=== PATIENT | female | born 1980 | race American Indian/Alaskan Native ===

== ENCOUNTER 2019-02-02 15:11 | Inpatient (IN) | payer BC ==
--- NOTE | 2019-02-02 15:18 | Event Note ---
ED Screening Note Date of service: 02/02/19 Time: 15:16 ED Screening Note: 38 y o female with PMH of HTN and DM presents with right sided weakness and numbness that began with a headache 2 hours ago This initial assessment/diagnostic orders/clinical plan/treatment(s) is/are subject to change based on patients health status, clinical progression and re- assessment by fellow clinical providers in the ED. Further treatment and workup at subsequent clinical providers discretion. Patient/guardian urged not to elope from the ED as their condition may be serious if not clinically assessed and managed. Initial orders include: protocol charge nurse notified MAin side eval
[2019-02-02 15:34] LABS: Basophils # (Auto) 0.1 K/mm3 (0.0-0.1); Eosinophils # (Auto) 0.3 K/mm3 (0.0-0.4); Eosinophils % (Auto) 2.8 % (0.0-4.3); Hematocrit 38.6 % (30.3-42.9); Hemoglobin 12.7 gm/dl (10.1-14.3); Lymphocytes # (Auto) 2.1 K/mm3 (1.2-5.4); Lymphocytes % (Auto) 17.6 % (13.4-35.0); Mean Corpuscular HGB Conc 33 % (30-34); Mean Corpuscular Volume 90 fl (79-97); Monocytes # (Auto) 0.9 K/mm3 (0.0-0.8); Monocytes % (Auto) 7.5 % (0.0-7.3); Platelet Count 412 K/mm3 (140-440); Red Blood Count 4.28 M/mm3 (3.65-5.03); Red Cell Distribution Width 13.6 % (13.2-15.2)
[2019-02-02] MEDS ORDERED: MORPHINE IV ONE (15:39)
[2019-02-02] MEDS ORDERED: ZOFRAN IV ONE (15:39)
[2019-02-02] MEDS ORDERED: ACTIVASE IV ONE ×2 (15:40)
--- NOTE | 2019-02-02 15:43 | Cat Scan Report ---
CT BRAIN: 02/02/2019 INDICATION / CLINICAL INFORMATION: Right-sided numbness. COMPARISON: None available. FINDINGS: BRAIN/INTRACRANIAL STRUCTURES: Unenhanced CT images of the brain demonstrate no evidence of acute int racranial abnormality. Ventricles and sulci are normal in size and shape. There is no CT evidence of hemorrhage or mass. There is no CT evidence of acute ischemic injury. EXTRACRANIAL STRUCTURES: Unremarkable. IMPRESSION: Negative unenhanced CT of the brain. Findings discussed with Dr Meza. in the emergency department at [address] scans at this location are performed using dose reduction to ALARA by means of automated expos ure control. Signer Name: Sacha Taylor MD Signed: 02/02/2019 3:39 PM Workstation Name: [id number]
[2019-02-02 15:46] LABS: INR 1.04 (0.87-1.13)
[2019-02-02 15:47] LABS: Partial Thromboplastin Time 30.9 Sec. (24.2-36.6); Thrombin Time 15.9 Sec. (15.1-19.6)
[2019-02-02] MEDS: NACL 0.9% IV ONE ×2 (15:50→19:32)
[2019-02-02 15:53] LABS: Creatine Kinase MB 1.2 ng/mL (0.0-4.0)
[2019-02-02 15:54] LABS: Alanine Aminotransferase 17 units/L (7-56); Albumin 3.6 g/dL (3.9-5); BUN/Creatinine Ratio 15; Blood Urea Nitrogen 15 mg/dL (7-17); Calcium 9.3 mg/dL (8.4-10.2); Hemolysis Index 0
--- NOTE | 2019-02-02 16:06 | Emergency Department Report ---
ED Neuro Deficit HPI - General Chief Complaint: Neuro Symptoms/Deficit Stated Complaint: RT SIDE NUMB Time Seen by Provider: 02/02/19 15:15 Source: patient Mode of arrival: Wheelchair Limitations: No Limitations - History of Present Illness Initial Comments: [facility]rology Consult Services TeleStroke Metrics: LKW: 1330 Door Time: 1511 [facility] Contacted: 1521 [facility] at Bedside: 1526 NIHSS (assessment time): 1532 Interventional Candidate: Not a candidate as her symptoms are not consistent with a large vessel proximal occlusion. Chief Complaint: Headaches and right-sided weakness and numbness HPI: Asked to see this patient in emergent telemedicine consultation utilizing inter active audio and video technologies. Consultation was performed with assistance of ancillary / medical staff at bedside. Verbal consent to perform the examination with telemedicine was obtained. Jody ent agreed to proceed with the consultation for acute stroke protocol. 38-year-old right-handed -[place]er female who comes to the emergency room for evaluation of right-sided weakness and numbness. Patient does not take any aspirin at baseline. She does report a history of migraine headaches, but has not had a migraine in quite some time. She has never had stroke-like symptoms before associated with her migraines. Patient states that sometime around 9:30 AM this morning, she was at work when she had a left temporal headache followed by bilateral leg weakness and numbness. She went to go take a break. Then when she went to go take her second break around 1:30 PM, she noted that her right arm was numb and weak. She subsequently drove herself home. When she arrived home, her sister had to help her out of the car because she was now having right leg weakness. She did not have any severe left-sided headaches, but does note a mild right posterior headache. Upon my evaluation, she did have some mild right-sided weakness and numbness. Patient overall felt like her symptoms are not due to a migraine as she has never had symptoms like this before, and she ultimately consented to IV alteplase administration. Alteplase (tPA) Administration: Risk and benefit of IV Alteplase were discussed. Risk includes a 6% chance of symptomatic intracranial hemorrhage. Benefit includes an approximate 30% chance of improving at 3 months with the medication versus a 20% chance of improving at 3 months without the medication. Inclusion criteria were reviewed. Exclusion criteria were reviewed and are all negative. No recent issues with internal bleeding. No recent surgeries. Verbal Consent to Alteplase (tPA): I have explained to the patient the nature of the patients condition, the use of tPA fibrinolytic agent, and the benefits to be reasonably expected compared with alternative approaches. I have discussed the likelihood of major risks or complications of this procedure including (if applicable) but not limited to loss of limb function, brain damage, paralysis, hemorrhage, infection, complications from transfusion of blood components, drug reactions, blood clots and loss of life. I have also indicated that with any procedure there is always the possibility of an unexpected complication. I have explained the risks which include: 1. , Stroke or permanent neurologic injury (paralysis, coma, etc) 2. Worsening of stroke symptoms from swelling or bleeding in the brain 3. Bleeding in other parts of the body 4. Need for blood transfusions to replace blood or clotting factors 5. Allergic reaction to medications 6. Other unexpected complications All questions were answered and the patient expressed understanding of the treatment plan and consented to the procedure. Verbal Consent/Order: 1539 Alteplase Ordered: 1542 Alteplase Total Dose: 81 mg (weight 90 kg) Alteplase IV Bolus Dose: 8 mg given at 1549 Alteplase IV Infusion Dose: 72.9 mg started thereafter Vial of Alteplase was visually confirmed by myself. Dosing of IV Alteplase was reviewed by myself and with the ER nurse prior to Alteplase administration. Blood pressure Pre-Alteplase Administration: 153/90 at 1535 Blood pressure Post-Alteplase Administration: 149/71 at 1552 PMH: Migraine headaches, possible cardiomyopathy/CHF, anemia, hypertension, and diabetes mellitus SOC: Positive for tobacco abuse. Negative x2. Patient lives with family. FMH: Positive for stroke. ROS: 13 point review of systems were reviewed with the patient, and are all negative with the exception of the aforementioned in the history of present illness. VS: Pulse 66, respiration 14, oxygen saturation 100% Exam: Patient is in no apparent distress. Patient appears as stated age. No obvious acute respiratory or cardiac distress. Patient is well groomed and well-nourished. 1a- LOC: Keenly responsive - 0 1b- LOC questions: Answers both questions correctly - 0 1c- LOC commands- Performs both tasks correctly- 0 2- Gaze: Normal; no gaze paresis or gaze deviation - 0 3- Visual Medrano: normal, no Visual field deficit - 0 4- Facial movements: no facial palsy - 0 5- Upper limb motor right arm drift - 1 6- Lower limb motor right leg drift - 1 7- Limb Coordination: absent ataxia - 0 8- Sensory: right sensory loss - 1 9- Language - No aphasia - 0 10- Speech - No dysarthria -0 11- Neglect / Extinction - none found - 0 NIHSS score: 3 Diagnostic Data: Blood glucose 81, WBC 11.9, hemoglobin 12.7, platelets 412 CT of the head showed no acute intracranial process Medical Data Reviewed: 1.Data?reviewed include clinical labs, radiology,?and medical tests; 2.Tests?results discussed w/performing or interpreting physician; 3.Obtaining/reviewing old medical records; 4.Obtaining?case history from another source; 5.Independent?review of image, tracing, or specimen. Medical Decision Making: - Extensive number of diagnosis or management options are considered below. - Extensive amount of complex data reviewed. - High risk of complication and/or morbidity or mortality are associated with differential diagnostic considerations below. - There may be?uncertain?outcome and increased probability of prolonged functional impairment or high probability of severe prolonged functional impairment associated with some of these differential diagnosis. Differential Diagnosis for Stroke: 1.?Cardioembolic?stroke 2. Small vessel disease/lacune 3. Thromboembolic, [id number] mechanism 4.?Hypercoagulable?state-related infarct 5. Transient ischemic attack 6. Thrombotic mechanism, large artery disease Assessment: 1. Possible left MCA stroke s/p IV alteplase vs Complicated Migraine 2. Hypertension 3. Tobacco abuse 4. Anemia 5. Migraine headaches 6. Diabetes mellitus 7. Possible post- CHF Recommendations: Patient should be admitted to the inpatient hospitalist service and be monitored in the ICU. Monitor and document vital signs/blood pressure with neuro checks/NIHSS for the first 24 hours after receiving IV Alteplase using the following parameters: -Check every 15 minutes for 2 hours following IV Alteplase administration -Then check every 30 minutes for 6 hours -Then check every 1 hour for 16 hours Allow permissive hypertension. If SBP > 180 or DBP > 105 on 2 consecutive checks, then administer PRN IV anti- hypertensive medication (Labetalol 10-20 mg IV over 1-2 minutes or start Nicardipine drip at 5 mg/hr and can titrate up every 2.5 mg/hr until parameters are achieved) and notify MD. No anti-platelets or Lovenox for 24 hours s/p IV Alteplase per protocol. Place SCDs for DVT prevention. Repeat head CT in 24 hours s/p IV Alteplase per protocol. Obtain STAT head CT for any new acute headache or new neurological deficits Continue telemetry monitoring to look for paroxysmal atrial fibrillation. Check echocardiogram. Check brain MRI. Check MRA of the head and neck to evaluate her intracranial and extracranial blood vessels. Consult PT, OT, and ST. Check hemoglobin A1c and lipid panel. Would recommend to consult local Neurology provider to see patient in follow-up consultation on the floor. Plan of care was discussed with the patient. Thank you for allowing [facility] to participate in the care of your patient. Please call me, Dr. Martinez, with any questions at [phone]. Case discussed with the ER staff and Dr. Grewal. Critical Care notation: I was called to see this critical patient emergently. I personally evaluated this critical patient for acute stroke evaluation, and determining their eligibility for IV Alteplase and interventional therapies. I have spent approximately 26 minutes with the patient, including time at bedside, time discussing the case with other physicians, reviewing plan of care, and time independently reviewing the records and scans. - Related Data Allergies/Adverse Reactions: Allergies Allergy/AdvReac Type Severity Reaction Status Date / Time No Known Allergies Allergy Unverified 02/02/19 15:15 ED Review of Systems ROS: Stated complaint: RT SIDE NUMB Other details as noted in HPI ED Past Medical Hx - Past Medical History Hx Hypertension: Yes Hx Congestive Heart Failure: Yes Hx Diabetes: Yes ED Neuro Physical Exam - General Limitations: No Limitations Suspected Stroke: Yes - NIHSS Assessment Interval: Baseline 1a. Level of Consciousness: alert/keenly responsive 1b. LOC Questions: answers both correctly 1c. LOC Commands: performs tasks correctly 2. Best Gaze: normal 3. Visual: no visual loss 4. Facial Palsy: normal symmetrical movement 5b. Motor Arm Right: drift 5a. Motor Arm Left: no drift 6a. Motor Leg Left: no drift 6b. Motor Leg Right: drift 7. Limb Ataxia: absent 8. Sensory: mild/moderate sensory loss 9. Best Language: no aphasia 10. Dysarthria: normal 11. Extinction/Inattention: no abnormality Total Score: 3 Stroke Severity: Minor Stroke ED Course Vital Signs 02/02/19 15:17 Pulse Rate 89 Respiratory 18 Rate Blood Pressure 149/98 [Right] O2 Sat by Pulse 98 Oximetry - Lab Data Result diagrams: 02/02/19 15:25 02/02/19 15:25 Lab Results 02/02/19 02/02/19 02/02/19 Range/Units 15:23 15:25 15:25 WBC 11.9 H (4.5-11.0) K/mm3 RBC 4.28 (3.65-5.03) M/mm3 Hgb 12.7 (10.1-14.3) gm/dl Hct 38.6 (30.3-42.9) % MCV 90 (79-97) fl MCH 30 (28-32) pg MCHC 33 (30-34) % RDW 13.6 (13.2-15.2) % Plt Count 412 (140-440) K/mm3 Lymph % (Auto) 17.6 (13.4-35.0) % [place] % (Auto) 7.5 H (0.0-7.3) % Eos % (Auto) 2.8 (0.0-4.3) % Baso % (Auto) 1.0 (0.0-1.8) % Lymph # 2.1 (1.2-5.4) K/mm3 [place] # 0.9 H (0.0-0.8) K/mm3 Eos # 0.3 (0.0-0.4) K/mm3 Baso # 0.1 (0.0-0.1) K/mm3 Seg Neutrophils % 71.1 H (40.0-70.0) % Seg Neutrophils # 8.5 H (1.8-7.7) K/mm3 PT 13.3 (12.2-14.9) Sec. INR 1.04 (0.87-1.13) APTT 30.9 (24.2-36.6) Sec. Thrombin Time 15.9 (15.1-19.6) Sec. Sodium (137-145) mmol/L Potassium (3.6-5.0) mmol/L Chloride (98-107) mmol/L Carbon Dioxide (22-30) mmol/L Anion Gap mmol/L BUN (7-17) mg/dL Creatinine (0.7-1.2) mg/dL Estimated GFR ml/min BUN/Creatinine Ratio % Glucose (65-100) mg/dL POC Glucose 81 (70-105) Calcium (8.4-10.2) mg/dL Total Bilirubin (0.1-1.2) mg/dL AST (5-40) units/L ALT (7-56) units/L Alkaline Phosphatase (35-129) units/L Total Creatine Kinase (30-135) units/L CK-MB (CK-2) (0.0-4.0) ng/mL CK-MB (CK-2) Rel Index (0-4) Troponin T (0.00-0.029) ng/mL Total Protein (6.3-8.2) g/dL Albumin (3.9-5) g/dL Albumin/Globulin Ratio % 02/02/19 02/02/19 Range/Units 15:25 15:25 WBC (4.5-11.0) K/mm3 RBC (3.65-5.03) M/mm3 Hgb (10.1-14.3) gm/dl Hct (30.3-42.9) % MCV (79-97) fl MCH (28-32) pg MCHC (30-34) % RDW (13.2-15.2) % Plt Count (140-440) K/mm3 Lymph % (Auto) (13.4-35.0) % [place] % (Auto) (0.0-7.3) % Eos % (Auto) (0.0-4.3) % Baso % (Auto) (0.0-1.8) % Lymph # (1.2-5.4) K/mm3 [place] # (0.0-0.8) K/mm3 Eos # (0.0-0.4) K/mm3 Baso # (0.0-0.1) K/mm3 Seg Neutrophils % (40.0-70.0) % Seg Neutrophils # (1.8-7.7) K/mm3 PT (12.2-14.9) Sec. INR (0.87-1.13) APTT (24.2-36.6) Sec. Thrombin Time (15.1-19.6) Sec. Sodium 135 L (137-145) mmol/L Potassium 4.2 (3.6-5.0) mmol/L Chloride 99.6 (98-107) mmol/L Carbon Dioxide 21 L (22-30) mmol/L Anion Gap 19 mmol/L BUN 15 (7-17) mg/dL Creatinine 1.0 (0.7-1.2) mg/dL Estimated GFR > 60 ml/min BUN/Creatinine Ratio 15 % Glucose 91 (65-100) mg/dL POC Glucose (70-105) Calcium 9.3 (8.4-10.2) mg/dL Total Bilirubin < 0.20 (0.1-1.2) mg/dL AST 16 (5-40) units/L ALT 17 (7-56) units/L Alkaline Phosphatase 124 (35-129) units/L Total Creatine Kinase 117 (30-135) units/L CK-MB (CK-2) 1.2 (0.0-4.0) ng/mL CK-MB (CK-2) Rel Index 1.0 (0-4) Troponin T < 0.010 (0.00-0.029) ng/mL Total Protein 8.3 H (6.3-8.2) g/dL Albumin 3.6 L (3.9-5) g/dL Albumin/Globulin Ratio 0.8 % Critical care attestation.: If time is entered above; I have spent that time in minutes in the direct care of this critically ill patient, excluding procedure time. 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
--- NOTE | 2019-02-02 16:08 | Emergency Department Report ---
ED Neuro Deficit HPI - General Chief Complaint: Neuro Symptoms/Deficit Stated Complaint: RT SIDE NUMB Time Seen by Provider: 02/02/19 15:15 Source: patient Mode of arrival: Wheelchair Limitations: No Limitations - History of Present Illness Initial Comments: Patient is a 38-year-old female with a past medical history hypertension diabetes and cardiomyopathy who is presenting with some right sided weakness. Patient states that approximately 1 PM she began having some right sided facial droop right sided arm and leg weakness. Patient states she has some mild difficulty in speaking states she feels as though her voices m uffled. Patient has an associated headache. Patient has a history of migraines but states she's never had any neurological symptoms such as weakness with her migraines. Patient states that the migraine started earlier today. Patient denies any chest pain shortness of breath fevers chills nausea vomiting at this time. - Related Data Allergies/Adverse Reactions: Allergies Allergy/AdvReac Type Severity Reaction Status Date / Time No Known Allergies Allergy Unverified 02/02/19 15:15 ED Review of Systems ROS: Stated complaint: RT SIDE NUMB Other details as noted in HPI Comment: All other systems reviewed and negative ED Past Medical Hx - Past Medical History Hx Hypertension: Yes Hx Congestive Heart Failure: Yes Hx Diabetes: Yes ED Neuro Physical Exam - General Limitations: No Limitations General appearance: alert, in no apparent distress Suspected Stroke: Yes - Head Head exam: Present: atraumatic, normocephalic - Eye Eye exam: Present: normal appearance, PERRL, EOMI - ENT ENT exam: Present: mucous membranes moist - Neck Neck exam: Present: normal inspection - Respiratory Respiratory exam: Present: normal lung sounds bilaterally. Absent: respiratory distress, wheezes, rales, rhonchi - Cardiovascular Cardiovascular Exam: Present: regular rate, normal rhythm. Absent: normal heart sounds, systolic murmur, diastolic murmur, rubs, gallop - GI/Abdominal GI/Abdominal exam: Present: soft, normal bowel sounds. Absent: distended, tenderness, guarding, rebound - Extremities Exam Extremities exam: Present: normal inspection - Back Exam Back exam: Present: normal inspection - Neurological Exam Neurological exam: Present: alert, oriented X3 - NIHSS Assessment Interval: Baseline 1a. Level of Consciousness: alert/keenly responsive 1b. LOC Questions: answers both correctly 1c. LOC Commands: performs tasks correctly 2. Best Gaze: normal 3. Visual: no visual loss 4. Facial Palsy: normal symmetrical movement 5b. Motor Arm Right: drift 5a. Motor Arm Left: no drift 6a. Motor Leg Left: no drift 6b. Motor Leg Right: some gravity effort 7. Limb Ataxia: absent 8. Sensory: normal 9. Best Language: no aphasia 10. Dysarthria: mild/moderate dysarthria 11. Extinction/Inattention: no abnormality Total Score: 4 Stroke Severity: Minor Stroke - Psychiatric Psychiatric exam: Present: normal affect, normal mood - Skin Skin exam: Present: warm, dry, intact, normal color. Absent: rash ED Course Vital Signs 02/02/19 15:17 Pulse Rate 89 Respiratory 18 Rate Blood Pressure 149/98 [Right] O2 Sat by Pulse 98 Oximetry - Lab Data Result diagrams: 02/02/19 15:25 02/02/19 15:25 Lab Results 02/02/19 02/02/19 02/02/19 Range/Units 15:23 15:25 15:25 WBC 11.9 H (4.5-11.0) K/mm3 RBC 4.28 (3.65-5.03) M/mm3 Hgb 12.7 (10.1-14.3) gm/dl Hct 38.6 (30.3-42.9) % MCV 90 (79-97) fl MCH 30 (28-32) pg MCHC 33 (30-34) % RDW 13.6 (13.2-15.2) % Plt Count 412 (140-440) K/mm3 Lymph % (Auto) 17.6 (13.4-35.0) % [place] % (Auto) 7.5 H (0.0-7.3) % Eos % (Auto) 2.8 (0.0-4.3) % Baso % (Auto) 1.0 (0.0-1.8) % Lymph # 2.1 (1.2-5.4) K/mm3 [place] # 0.9 H (0.0-0.8) K/mm3 Eos # 0.3 (0.0-0.4) K/mm3 Baso # 0.1 (0.0-0.1) K/mm3 Seg Neutrophils % 71.1 H (40.0-70.0) % Seg Neutrophils # 8.5 H (1.8-7.7) K/mm3 PT 13.3 (12.2-14.9) Sec. INR 1.04 (0.87-1.13) APTT 30.9 (24.2-36.6) Sec. Thrombin Time 15.9 (15.1-19.6) Sec. Sodium (137-145) mmol/L Potassium (3.6-5.0) mmol/L Chloride (98-107) mmol/L Carbon Dioxide (22-30) mmol/L Anion Gap mmol/L BUN (7-17) mg/dL Creatinine (0.7-1.2) mg/dL Estimated GFR ml/min BUN/Creatinine Ratio % Glucose (65-100) mg/dL POC Glucose 81 (70-105) Calcium (8.4-10.2) mg/dL Total Bilirubin (0.1-1.2) mg/dL AST (5-40) units/L ALT (7-56) units/L Alkaline Phosphatase (35-129) units/L Total Creatine Kinase (30-135) units/L CK-MB (CK-2) (0.0-4.0) ng/mL CK-MB (CK-2) Rel Index (0-4) Troponin T (0.00-0.029) ng/mL Total Protein (6.3-8.2) g/dL Albumin (3.9-5) g/dL Albumin/Globulin Ratio % 02/02/19 02/02/19 Range/Units 15:25 15:25 WBC (4.5-11.0) K/mm3 RBC (3.65-5.03) M/mm3 Hgb (10.1-14.3) gm/dl Hct (30.3-42.9) % MCV (79-97) fl MCH (28-32) pg MCHC (30-34) % RDW (13.2-15.2) % Plt Count (140-440) K/mm3 Lymph % (Auto) (13.4-35.0) % [place] % (Auto) (0.0-7.3) % Eos % (Auto) (0.0-4.3) % Baso % (Auto) (0.0-1.8) % Lymph # (1.2-5.4) K/mm3 [place] # (0.0-0.8) K/mm3 Eos # (0.0-0.4) K/mm3 Baso # (0.0-0.1) K/mm3 Seg Neutrophils % (40.0-70.0) % Seg Neutrophils # (1.8-7.7) K/mm3 PT (12.2-14.9) Sec. INR (0.87-1.13) APTT (24.2-36.6) Sec. Thrombin Time (15.1-19.6) Sec. Sodium 135 L (137-145) mmol/L Potassium 4.2 (3.6-5.0) mmol/L Chloride 99.6 (98-107) mmol/L Carbon Dioxide 21 L (22-30) mmol/L Anion Gap 19 mmol/L BUN 15 (7-17) mg/dL Creatinine 1.0 (0.7-1.2) mg/dL Estimated GFR > 60 ml/min BUN/Creatinine Ratio 15 % Glucose 91 (65-100) mg/dL POC Glucose (70-105) Calcium 9.3 (8.4-10.2) mg/dL Total Bilirubin < 0.20 (0.1-1.2) mg/dL AST 16 (5-40) units/L ALT 17 (7-56) units/L Alkaline Phosphatase 124 (35-129) units/L Total Creatine Kinase 117 (30-135) units/L CK-MB (CK-2) 1.2 (0.0-4.0) ng/mL CK-MB (CK-2) Rel Index 1.0 (0-4) Troponin T < 0.010 (0.00-0.029) ng/mL Total Protein 8.3 H (6.3-8.2) g/dL Albumin 3.6 L (3.9-5) g/dL Albumin/Globulin Ratio 0.8 % - EKG Data -: EKG Interpreted by Me 02/02/19 16:06 EKG shows a sinus rhythm with a rate of 62 axis and normal intervals are normal there is evidence of LVH and anterior T-wave inversions. There are no ST segment elevations or depressions. Time of interpretation is 1641 - Radiology Data [facility] [address] [place] [address] Cat Scan Report Signed Patient: ANGELICA GARCIA MR#: [id number] : 1980 Acct:[id number] Age/Sex: 38 / F ADM Date: 02/02/19 Loc: ED Attending Dr: Ordering Physician: JENNIFER VILLALPANDO Date of Service: 02/02/19 Procedure(s): CT head/brain wo con Accession Number(s): [id number] cc: JENNIFER VILLALPANDO CT BRAIN: 02/02/2019 INDICATION / CLINICAL INFORMATION: Right-sided numbness. COMPARISON: None available. FINDINGS: BRAIN/INTRACRANIAL STRUCTURES: Unenhanced CT images of the brain demonstrate no evidence of acute intracranial abnormality. Ventricles and sulci are normal in size and shape. There is no CT evidence of hemorrhage or mass. There is no CT evidence of acute ischemic injury. EXTRACRANIAL STRUCTURES: Unremarkable. IMPRESSION: Negative unenhanced CT of the brain. Findings discussed with Dr Meza. in the emergency department at [address] scans at this location are performed using dose reduction to ALARA by means of automated exposure control. Signer Name: Sacha Taylor MD Signed: 02/02/2019 3:39 PM Workstation Name: [id number] Transcribed By: AO Dictated By: Sacha Taylor MD Electronically Authenticated By: Sacha Taylor MD Signed Date/Time: 02/02/19 1539 - Medical Decision Making [facility] neurolog[facility] and they discussed risks and benefits of TPA. Patient does have significant weakness to the right upper and lower extremity. Patient is within the window for TPA. Patient states she's never had these symptoms before with migraines which makes accomplish migrainous sligh tly less probable. Patient was given TPA and will be admitted to the hospitalist service. Critical Care Time: Yes (30) Critical care attestation.: If time is entered above; I have spent that time in minutes in the direct care of this critically ill patient, excluding procedure time. ED Disposition Clinical Impression: CVA (cerebral vascular accident) Qualifiers: CVA mechanism: unspecified Qualified Code(s): I63.9 - Cerebral infarction, unspecified Disposition: OP ADMIT IP TO THIS HOSP Is pt being admited?: Yes Does the pt Need Aspirin: No Condition: Serious Time of Disposition: 16:09
--- NOTE | 2019-02-02 16:22 | History and Physical Report ---
History of Present Illness Date of examination: 02/02/19 Date of admission: 02/02/2019 Chief complaint: Acute onset of right-sided weakness since 1:30 PM History of present illness: 38-year-old -Sen[place] female with history of hypertension and type 2 diabetes with strong family history of strokes comes in for acute onset of right-sided weakness suddenly at around 1:30 PM. Patient came to the emergency room immediately and code stroke was called. Patient was weak on the right side and has slurred speech. Patient was given TPA at around 3:39 PM. Post-TPA patient has slight improvement in her right-sided weakness. Able to move move RUE and RLE extremity against gravity to some extent. Slurred speech was improving. No nasal regurgitation of fluids. No diplopia. No nausea or vomiting. No ataxic gait. No fever or chills. No recent travel. No exacerbating or relieving factors. Past History Past Medical History: diabetes, hypertension, hyperlipidemia Past Surgical History: Other (right toe surgery) Social history: lives with family, full code. denies: alcohol abuse Family history: hypertension, stroke Medications and Allergies Allergies Allergy/AdvReac Type Severity Reaction Status Date / Time No Known Allergies Allergy Unverified 02/02/19 15:15 Home Medications Medication Instructions Recorded Confirmed Last Taken Type Carvedilol [Coreg] 25 mg PO BID 02/02/19 02/02/19 02/02/19 History Ferrous Sulfate [Feosol 325 MG tab] 325 mg PO DAILY 02/02/19 02/02/19 02/02/19 History Insulin Glargine,Hum.rec.anlog 20 unit SQ HS 02/02/19 02/02/19 02/01/19 History [Basaglar Jasonikpen U-100] Lisinopril/Hydrochlorothiazide 1 tab PO QDAY 02/02/19 02/02/19 02/02/19 History [Zestoretic 20-25 mg] Review of Systems All systems: negative Constitutional: no weight loss, no weight gain, no fever, no chills Ears, nose, mouth and throat: no ear pain, no nasal congestion, no nasal discharge Breasts: deferred Cardiovascular: no chest pain, no orthopnea, no palpitations, no rapid/irregular heart beat, no edema, no syncope, no lightheadedness, no shortness of breath Respiratory: no cough, no cough with sputum, no excessive sputum, no hemoptysis, no shortness of breath, no dyspnea on exertion Gastrointestinal: no abdominal pain, no nausea, no vomiting, no diarrhea, no constipation, no change in bowel habits, no hematemesis, no coffee ground emesis Rectal: no pain Musculoskeletal: muscle weakness (right upper and lower extremity weakness), no neck stiffness, no neck pain, no shooting arm pain, no arm numbness/tingling, no leg numbness/tingling, no redness of joints Integumentary: no rash, no pruritis, no redness, no sores, no wounds, no jaundice Neurological: paralysis (right-sided upper and lower extremity weakness), weakne ss, no head injury, no transient paralysis, no parathesias, no numbness, no tingling, no seizures, no syncope, no ataxia, no lack of coordination Psychiatric: no anxiety, no memory loss, no change in sleep habits, no sleep disturbances, no insomnia Endocrine: no cold intolerance, no heat intolerance, no polyphagia, no excessive thirst Hematologic/Lymphatic: no easy bruising, no easy bleeding Allergic/Immunologic: no urticaria, no allergic rhinitis, no wheezing Exam - Constitutional Vitals: Temp Pulse Resp BP Pulse Ox 89 18 149/98 98 02/02/19 15:17 02/02/19 15:17 02/02/19 15:17 02/02/19 15:17 General appearance: Present: no acute distress, well-nourished - EENT Eyes: Present: PERRL ENT: hearing intact, clear oral mucosa - Neck Neck: Present: supple, normal ROM - Respiratory Respiratory effort: normal Respiratory: bilateral: CTA - Cardiovascular Heart rate: 60 Rhythm: regular Heart Sounds: Present: S1 & S2. Absent: rub, click - Extremities Extremities: pulses symmetrical, No edema Peripheral Pulses: within normal limits - Abdominal General gastrointestinal: Present: soft, non-tender, non-distended, normal bowel sounds Female genitourinary: Present: normal - Rectal Rectal Exam: deferred - Integumentary Integumentary: Present: clear, warm, dry - Musculoskeletal Musculoskeletal: right sided weakness (RUE 3/5 power RLE 3/5 power,), other (Slurred speech present,Reflexes are brisk on Rt side) - Psychiatric Psychiatric: appropriate mood/affect, intact judgment & insight, cooperative - Neurologic Neurologic: CNII-XII intact, focal deficits, moves all extremities - Allied Health Allied health notes reviewed: nursing, case management Results - Labs CBC & Chem 7: 02/03/19 04:50 02/02/19 15:25 Labs: Laboratory Last Values WBC 11.9 K/mm3 (4.5-11.0) H 02/02/19 15:25 RBC 4.28 M/mm3 (3.65-5.03) 02/02/19 15:25 Hgb 12.7 gm/dl (10.1-14.3) 02/02/19 15:25 Hct 38.6 % (30.3-42.9) 02/02/19 15:25 MCV 90 fl (79-97) 02/02/19 15:25 MCH 30 pg (28-32) 02/02/19 15:25 MCHC 33 % (30-34) 02/02/19 15:25 RDW 13.6 % (13.2-15.2) 02/02/19 15:25 Plt Count 412 K/mm3 (140-440) 02/02/19 15:25 Lymph % (Auto) 17.6 % (13.4-35.0) 02/02/19 15:25 Floyd % (Auto) 7.5 % (0.0-7.3) H 02/02/19 15:25 Eos % (Auto) 2.8 % (0.0-4.3) 02/02/19 15:25 Baso % (Auto) 1.0 % (0.0-1.8) 02/02/19 15:25 Lymph # 2.1 K/mm3 (1.2-5.4) 02/02/19 15:25 Floyd # 0.9 K/mm3 (0.0-0.8) H 02/02/19 15:25 Eos # 0.3 K/mm3 (0.0-0.4) 02/02/19 15:25 Baso # 0.1 K/mm3 (0.0-0.1) 02/02/19 15:25 Seg Neutrophils % 71.1 % (40.0-70.0) H 02/02/19 15:25 Seg Neutrophils # 8.5 K/mm3 (1.8-7.7) H 02/02/19 15:25 PT 13.3 Sec. (12.2-14.9) 02/02/19 15:25 INR 1.04 (0.87-1.13) 02/02/19 15:25 APTT 30.9 Sec. (24.2-36.6) 02/02/19 15:25 15.9 Sec. (15.1-19.6) 02/02/19 15:25 Sodium 135 mmol/L (137-145) L 02/02/19 15:25 Potassium 4.2 mmol/L (3.6-5.0) 02/02/19 15:25 Chloride 99.6 mmol/L (98-107) 02/02/19 15:25 Carbon Dioxide 21 mmol/L (22-30) L 02/02/19 15:25 19 mmol/L 02/02/19 15:25 BUN 15 mg/dL (7-17) 02/02/19 15:25 1.0 mg/dL (0.7-1.2) 02/02/19 15:25 Estimated GFR > 60 ml/min 02/02/19 15:25 15 % 02/02/19 15:25 Glucose 91 mg/dL (65-100) 02/02/19 15:25 POC Glucose 81 (70-105) 02/02/19 15:23 Calcium 9.3 mg/dL (8.4-10.2) 02/02/19 15:25 < 0.20 mg/dL (0.1-1.2) 02/02/19 15:25 AST 16 units/L (5-40) 02/02/19 15:25 ALT 17 units/L (7-56) 02/02/19 15:25 124 units/L (35-129) 02/02/19 15:25 117 units/L (30-135) 02/02/19 15:25 CK-MB (CK-2) 1.2 ng/mL (0.0-4.0) 02/02/19 15:25 CK-MB (CK-2) Rel Index 1.0 (0-4) 02/02/19 15:25 < 0.010 ng/mL (0.00-0.029) 02/02/19 15:25 8.3 g/dL (6.3-8.2) H 02/02/19 15:25 3.6 g/dL (3.9-5) L 02/02/19 15:25 0.8 % 02/02/19 15:25 Short CBC 02/02/19 Range/Units 15:25 WBC 11.9 H (4.5-11.0) K/mm3 Hgb 12.7 (10.1-14.3) gm/dl Hct 38.6 (30.3-42.9) % Plt Count 412 (140-440) K/mm3 [facility] 02/02/19 15:25 Sodium 135 L Potassium 4.2 Chloride 99.6 Carbon Dioxide 21 L BUN 15 Creatinine 1.0 Glucose 91 Calcium 9.3 Cardiac Enzymes 02/02/19 Range/Units 15:25 Total Creatine Kinase 117 (30-135) units/L CK-MB (CK-2) 1.2 (0.0-4.0) ng/mL Troponin T < 0.010 (0.00-0.029) ng/mL Liver Function 02/02/19 Range/Units 15:25 Total Bilirubin < 0.20 (0.1-1.2) mg/dL AST 16 (5-40) units/L ALT 17 (7-56) units/L Alkaline Phosphatase 124 (35-129) units/L Albumin 3.6 L (3.9-5) g/dL Short CBC 02/02/19 02/03/19 Range/Units 15:25 04:50 WBC 11.9 H 10.4 (4.5-11.0) K/mm3 Hgb 12.7 11.8 (10.1-14.3) gm/dl Hct 38.6 35.7 (30.3-42.9) % Plt Count 412 357 (140-440) K/mm3 [facility] 02/02/19 15:25 Sodium 135 L Potassium 4.2 Chloride 99.6 Carbon Dioxide 21 L BUN 15 Creatinine 1.0 Glucose 91 Calcium 9.3 Cardiac Enzymes 02/02/19 Range/Units 15:25 Total Creatine Kinase 117 (30-135) units/L CK-MB (CK-2) 1.2 (0.0-4.0) ng/mL Troponin T < 0.010 (0.00-0.029) ng/mL Liver Function 02/02/19 Range/Units 15:25 Total Bilirubin < 0.20 (0.1-1.2) mg/dL AST 16 (5-40) units/L ALT 17 (7-56) units/L Alkaline Phosphatase 124 (35-129) units/L Albumin 3.6 L (3.9-5) g/dL - Imaging and Cardiology EKG: report reviewed (NSR 62/min LVH,Borderline ST elevation) CT scan - abdomen: report reviewed CT Scan - head: report reviewed Imaging and Cardiology: Head CT IMPRESSION: Negative unenhanced CT of the brain. CT abdomen FINDINGS: Lung bases are clear. Liver is slightly enlarged but intrinsically unremarkable. Gallbladder, spleen, pancreas, kidneys and adrenals appear negative on this noncontrast exam. Abdominal aorta is normal in size. Pelvis Uterus, ovaries and urinary bladder appear negative. No free fluid. Normal appendix. No acute skeletal lesions. IMPRESSION: 1. No acute abnormality. Signer Name: Ivan Marks MD Signed: 02/02/2019 5:33 PM Workstation Name: [id number] [place] Head [address] NAF Assessment and Plan Assessment and plan: CCT 35 minutes Advance Directives: Yes (full code) VTE prophylaxis?: Chemical Plan of care discussed with patient/family: Yes - Patient Problems (1) Acute CVA (cerebrovascular accident) Current Visit: No Status: Acute Plan to address problem: Status post-TPA Improving Stroke workup initiated including MRA MRI Echo and Carotid duplex scan Neurology consult requested (2) Hypertension Current Visit: No Status: Chronic Qualifiers: Hypertension type: essential hypertension Qualified Code(s): I10 - Essential (primary) hypertension Plan to address problem: Continue antihypertensives (3) Diabetes Current Visit: No Status: Chronic Qualifiers: Diabetes mellitus type: type 2 Plan to address problem: Continue hypoglycemics and coverage with sliding scale insulin Check hemoglobin A1c (4) Hyperlipidemia Current Visit: No Status: Chronic Qualifiers: Hyperlipidemia type: mixed hyperlipidemia Qualified Code(s): E78.2 - Mixed hyperlipidemia Plan to address problem: Continue statins (5) CHF (congestive heart failure), NYHA class II Current Visit: No Status: Chronic Qualifiers: Congestive heart failure type: combined Plan to address problem: Continue diuretics (6) Hypotension Current Visit: Yes Status: Acute Qualifiers: Hypotension type: idiopathic hypotension Qualified Code(s): I95.0 - Idiopathic hypotension Plan to address problem: Patient ad a brief episode of Hypotension post TPA.Abd CT was negative.Responded to bolus of IV fluids. (7) DVT prophylaxis Current Visit: No Status: Acute Plan to address problem: On Lovenox and GI prophylaxis
[2019-02-02] MEDS ORDERED: NACL 0.9% 1000 ML 1,000 ML ONE (16:56)
--- NOTE | 2019-02-02 17:29 | Cat Scan Report ---
CT BRAIN: 02/02/2019 1703 hours ET INDICATION / CLINICAL INFORMATION: AMS, s/p TPA. COMPARISON: 02/02/2019 at 1521 hours ET FINDINGS: BRAIN/INTRACRANIAL STRUCTURES: Unenhanced CT images of the brain demonstrate no evidence of acute int racranial abnormality. Ventricles and sulci are normal in size and shape. There is no evidence of hemorrhage. There are no abnormal extra-axial fluid collections. EXTRACRANIAL STRUCTURES: Unremarkable. IMPRESSION: No acute abnormality. No change when compared to the earlier exam. Incidental note is made of some chronic appearing encephalomalacia in the medial aspect of the right occipital cortex, which was also present at the time of the earlier exam. This may be evidence of rem ote injury or developmental anomaly. All CT scans at this location are performed using dose reduction to ALARA by means of automated expos ure control. Signer Name: Sacha Taylor MD Signed: 02/02/2019 5:25 PM Workstation Name: [id number]
--- NOTE | 2019-02-02 17:37 | Cat Scan Report ---
CT abdomen pelvis wo con INDICATION: Abdominal pain, S/P TPA. TECHNIQUE: All CT scans at this location are performed using CT dose reduction for ALARA by means of automated e xposure control. COMPARISON: None available. FINDINGS: Lung bases are clear. Liver is slightly enlarged but intrinsically unremarkable. Gallbladder, spleen, pancreas, kidneys and adrenals appear negative on this noncontrast exam. Abdominal aorta is normal i n size. Pelvis Uterus, ovaries and urinary bladder appear negative. No free fluid. Normal appendix. No acute skeletal lesions. IMPRESSION: 1. No acute abnormality. Signer Name: Ivan Marks MD Signed: 02/02/2019 5:33 PM Workstation Name: [id number]
[2019-02-02] MEDS ORDERED: NACL 0.9% 1000 ML 1,000 ML IV ONE (19:19)
[2019-02-02] MEDS ORDERED: SODIUM CHLORIDE FLUSH SYRINGE 10 ML IV PRN (19:20)
[2019-02-02] MEDS ORDERED: SODIUM CHLORIDE FLUSH SYRINGE 10 ML INJ PRN (19:20)
[2019-02-02] MEDS ORDERED: DILAUDID IV PRN (19:21)
[2019-02-02] MEDS ORDERED: NACL 0.9% 1000 ML 1,000 ML IV SCH (20:00)
[2019-02-02] MEDS: SODIUM CHLORIDE FLUSH SYRINGE 10 ML IV SCH (22:51)
[2019-02-03] MEDS: HABITROL TD SCH ×2 (03:06→11:28)
[2019-02-03] MEDS: COREG PO SCH ×3 (03:08→22:57)
[2019-02-03 05:27] LABS: Basophils % (Auto) 0.4 % (0.0-1.8); Eosinophils # (Auto) 0.3 K/mm3 (0.0-0.4); Hematocrit 35.7 % (30.3-42.9); Hemoglobin 11.8 gm/dl (10.1-14.3); Lymphocytes # (Auto) 1.5 K/mm3 (1.2-5.4); Lymphocytes % (Auto) 14.2 % (13.4-35.0); Mean Corpuscular HGB Conc 33 % (30-34); Mean Corpuscular Volume 90 fl (79-97); Platelet Count 357 K/mm3 (140-440); Red Blood Count 3.99 M/mm3 (3.65-5.03); Red Cell Distribution Width 13.8 % (13.2-15.2)
[2019-02-03 06:58] LABS: Alanine Aminotransferase 13 units/L (7-56); Albumin 3.1 g/dL (3.9-5); BUN/Creatinine Ratio 19; Blood Urea Nitrogen 15 mg/dL (7-17); Calcium 8.5 mg/dL (8.4-10.2); Chol/HDL Ratio 3.46 %; HDL Cholesterol 39 mg/dL (40-59); Hemolysis Index 1; LDL Cholesterol,Direct 96 mg/dL (50-130)
--- NOTE | 2019-02-03 08:01 | Progress Note ---
Assessment and Plan Assessment and plan: 38-year-old woman who presented with multiple neurological complaints. She stated that he started out with a headache and left-sided neck pain that radiated to the left side of her head. She then developed weakness in both her legs and had to hold onto something, she then noted that she had slurred speech, and numbness on her left side. She was admitted to the hospital and given TPA for suspected stroke. CVA? Awaiting MRI, with MRI shows no bleeding will be started on aspirin tomorrow, Hypertension, diabetes, hyperlipidemia Continue chronic medications CHF Unknown if it is systolic or diastolic, follow-up echo, currently euvolemic Critical care time 35 minutes History Interval history: Patient denies headache or neck pain at this time. She denies focal weakness. States that slurred speech has now resolved. Hospitalist Physical - Physical exam Narrative exam: General.: Appears well, no distress, nontoxic HEENT: Moist mucous membranes, extraocular muscles intact, no lymphadenopathy Neck: supple Cardiac: S1-S2 heard Lungs: clear to auscultation bilaterally Abdomen: soft , nontender, nondistended, bowel sounds positive Extremities: no edema clubbing or cyanosis Skin: no rash or lesions Neurologic: no gross focal deficits Psych: calm, and cooperative - Constitutional Vitals: Temp Pulse Resp BP Pulse Ox 98.4 F 56 L 15 129/65 100 02/02/19 19:46 02/03/19 07:30 02/03/19 07:30 02/03/19 07:30 02/03/19 07:30 General appearance: Present: no acute distress, well-nourished Results - Labs CBC & Chem 7: 02/03/19 04:50 02/03/19 04:50 Labs: Laboratory Last Values WBC 10.4 K/mm3 (4.5-11.0) 02/03/19 04:50 RBC 3.99 M/mm3 (3.65-5.03) 02/03/19 04:50 Hgb 11.8 gm/dl (10.1-14.3) 02/03/19 04:50 Hct 35.7 % (30.3-42.9) 02/03/19 04:50 MCV 90 fl (79-97) 02/03/19 04:50 MCH 30 pg (28-32) 02/03/19 04:50 MCHC 33 % (30-34) 02/03/19 04:50 RDW 13.8 % (13.2-15.2) 02/03/19 04:50 Plt Count 357 K/mm3 (140-440) 02/03/19 04:50 Lymph % (Auto) 14.2 % (13.4-35.0) 02/03/19 04:50 [place] % (Auto) 10.0 % (0.0-7.3) H 02/03/19 04:50 Eos % (Auto) 3.0 % (0.0-4.3) 02/03/19 04:50 Baso % (Auto) 0.4 % (0.0-1.8) 02/03/19 04:50 Lymph # 1.5 K/mm3 (1.2-5.4) 02/03/19 04:50 [place] # 1.0 K/mm3 (0.0-0.8) H 02/03/19 04:50 Eos # 0.3 K/mm3 (0.0-0.4) 02/03/19 04:50 Baso # 0.0 K/mm3 (0.0-0.1) 02/03/19 04:50 Seg Neutrophils % 72.4 % (40.0-70.0) H 02/03/19 04:50 Seg Neutrophils # 7.5 K/mm3 (1.8-7.7) 02/03/19 04:50 PT 13.3 Sec. (12.2-14.9) 02/02/19 15:25 INR 1.04 (0.87-1.13) 02/02/19 15:25 APTT 30.9 Sec. (24.2-36.6) 02/02/19 15:25 15.9 Sec. (15.1-19.6) 02/02/19 15:25 Sodium 138 mmol/L (137-145) 02/03/19 04:50 Potassium 4.0 mmol/L (3.6-5.0) 02/03/19 04:50 Chloride 105.9 mmol/L (98-107) 02/03/19 04:50 Carbon Dioxide 23 mmol/L (22-30) 02/03/19 04:50 13 mmol/L 02/03/19 04:50 BUN 15 mg/dL (7-17) 02/03/19 04:50 0.8 mg/dL (0.7-1.2) 02/03/19 04:50 Estimated GFR > 60 ml/min 02/03/19 04:50 19 % 02/03/19 04:50 Glucose 98 mg/dL (65-100) 02/03/19 04:50 POC Glucose 86 (70-105) 02/02/19 21:40 5.2 % (4-6) 02/03/19 04:50 Calcium 8.5 mg/dL (8.4-10.2) 02/03/19 04:50 Magnesium 1.90 mg/dL (1.7-2.3) 02/02/19 19:30 0.20 mg/dL (0.1-1.2) 02/03/19 04:50 AST 14 units/L (5-40) 02/03/19 04:50 ALT 13 units/L (7-56) 02/03/19 04:50 105 units/L (35-129) 02/03/19 04:50 117 units/L (30-135) 02/02/19 15:25 CK-MB (CK-2) 1.2 ng/mL (0.0-4.0) 02/02/19 15:25 CK-MB (CK-2) Rel Index 1.0 (0-4) 02/02/19 15:25 < 0.010 ng/mL (0.00-0.029) 02/02/19 15:25 6.9 g/dL (6.3-8.2) 02/03/19 04:50 3.1 g/dL (3.9-5) L 02/03/19 04:50 0.8 % 02/03/19 04:50 Triglycerides 70 mg/dL (2-149) 02/03/19 04:50 Cholesterol 135 mg/dL (50-199) 02/03/19 04:50 96 mg/dL (50-130) 02/03/19 04:50 39 mg/dL (40-59) L 02/03/19 04:50 3.46 % 02/03/19 04:50 Active Medications - Current Medications Current Medications: Generic Name Dose Route Start Last Admin Trade Name Freq PRN Reason Stop Dose Admin Aspirin 325 mg 02/03/19 10:00 Aspirin PO QDAY [facility] Atorvastatin Calcium 40 mg 02/02/19 22:00 02/02/19 22:51 Lipitor PO 40 mg QHS SANDRA Administration Carvedilol 25 mg 02/02/19 23:00 02/03/19 03:08 Coreg PO Not Given BID [facility] Enoxaparin Sodium 40 mg 02/03/19 10:00 Lovenox SUB-Q QDAY@1000 SANDRA Ferrous Sulfate 325 mg 02/03/19 10:00 Feosol PO DAILY [facility] Hydrochlorothiazide 25 mg 02/03/19 10:00 Hctz PO QDAY [facility] Hydromorphone HCl 0.5 mg 02/02/19 19:21 Dilaudid IV Q3H PRN Pain , Severe (7-10) Sodium Chloride 1,000 mls @ 75 mls/hr 02/02/19 20:00 02/02/19 22:51 Nacl 0.9% 1000 Ml IV 02/03/19 11:00 75 mls/hr DIRECT SANDRA Administration Insulin Glargine 20 units 02/03/19 22:00 Lantus SUB-Q HS [facility] Insulin Human Lispro 0 unit 02/03/19 07:30 Humalog SUB-Q ACHS [facility] Protocol Lisinopril 20 mg 02/03/19 10:00 Zestril PO QDAY [facility] Nicotine 21 mg 02/03/19 00:00 02/03/19 03:06 Habitrol TD 21 mg QDAY SANDRA Administration Sodium Chloride 10 ml 02/02/19 22:00 02/02/19 22:51 Sodium Chloride Flush Syringe 10 Ml IV 10 ml BID SANDRA Administration Sodium Chloride 10 ml 02/02/19 19:20 Sodium Chloride Flush Syringe 10 Ml IV PRN PRN LINE FLUSH
[2019-02-03] MEDS: HumaLOG SUB-Q SCH ×4 (08:54→22:58)
[2019-02-03] MEDS ORDERED: NON-FORMULARY (Lisinopril/Hydrochlorothiazide [Zestoretic 20-25 Mg] 1 TAB) PO SCH (10:00)
[2019-02-03] MEDS ORDERED: ASPIRIN PO SCH (10:00)
[2019-02-03] MEDS ORDERED: LOVENOX SUB-Q SCH (10:00)
[2019-02-03] MEDS: FEOSOL PO SCH (11:26)
[2019-02-03] MEDS: ZESTRIL PO SCH (11:26)
[2019-02-03] MEDS: HCTZ PO SCH (11:28)
[2019-02-03] MEDS: SODIUM CHLORIDE FLUSH SYRINGE 10 ML IV SCH ×2 (11:29→22:59)
--- NOTE | 2019-02-03 13:15 | Progress Note ---
Subjective Date of service: 02/03/19 Interval history: PULMONARY/CCM CONSULT NOTE (Full dictation # ) Please see dictated notes for full details Objective Vital Signs - 12hr 02/03/19 02/03/19 02/03/19 01:31 01:45 02:00 Pulse Rate 63 55 L 57 L Pulse Rate [ Right Arm] Respiratory 16 24 17 Rate Respiratory Rate [Right Arm ] Blood Pressure 129/63 124/59 113/63 Blood Pressure [Right Arm] O2 Sat by Pulse 100 100 100 Oximetry O2 Sat by Pulse Oximetry [ Right Arm] 02/03/19 02/03/19 02/03/19 02:15 02:30 02:45 Pulse Rate 56 L 56 L 56 L Pulse Rate [ Right Arm] Respiratory 22 22 16 Rate Respiratory Rate [Right Arm ] Blood Pressure 116/62 114/58 137/68 Blood Pressure [Right Arm] O2 Sat by Pulse 100 99 99 Oximetry O2 Sat by Pulse Oximetry [ Right Arm] 02/03/19 02/03/19 02/03/19 03:00 03:08 03:15 Pulse Rate 60 58 L 58 L Pulse Rate [ Right Arm] Respiratory 17 20 Rate Respiratory Rate [Right Arm ] Blood Pressure 131/72 131/72 107/60 Blood Pressure [Right Arm] O2 Sat by Pulse 100 99 Oximetry O2 Sat by Pulse Oximetry [ Right Arm] 02/03/19 02/03/19 02/03/19 03:30 03:45 04:01 Pulse Rate 76 55 L 54 L Pulse Rate [ Right Arm] Respiratory 17 20 20 Rate Respiratory Rate [Right Arm ] Blood Pressure 118/70 109/57 156/69 Blood Pressure [Right Arm] O2 Sat by Pulse 100 100 100 Oximetry O2 Sat by Pulse Oximetry [ Right Arm] 02/03/19 02/03/19 02/03/19 04:15 04:30 04:45 Pulse Rate 54 L 54 L 56 L Pulse Rate [ Right Arm] Respiratory 21 23 22 Rate Respiratory Rate [Right Arm ] Blood Pressure 114/52 119/56 156/69 Blood Pressure [Right Arm] O2 Sat by Pulse 100 100 100 Oximetry O2 Sat by Pulse Oximetry [ Right Arm] 02/03/19 02/03/19 02/03/19 05:00 05:15 05:30 Pulse Rate 53 L 62 50 L Pulse Rate [ Right Arm] Respiratory 17 17 22 Rate Respiratory Rate [Right Arm ] Blood Pressure 117/62 116/65 124/67 Blood Pressure [Right Arm] O2 Sat by Pulse 100 100 100 Oximetry O2 Sat by Pulse Oximetry [ Right Arm] 02/03/19 02/03/19 02/03/19 05:45 06:01 06:15 Pulse Rate 54 L 54 L 54 L Pulse Rate [ Right Arm] Respiratory 23 14 15 Rate Respiratory Rate [Right Arm ] Blood Pressure 112/61 139/65 125/62 Blood Pressure [Right Arm] O2 Sat by Pulse 100 99 100 Oximetry O2 Sat by Pulse Oximetry [ Right Arm] 02/03/19 02/03/19 02/03/19 06:30 06:45 07:00 Pulse Rate 55 L 53 L 53 L Pulse Rate [ Right Arm] Respiratory 22 22 15 Rate Respiratory Rate [Right Arm ] Blood Pressure 127/66 132/68 124/73 Blood Pressure [Right Arm] O2 Sat by Pulse 100 100 100 Oximetry O2 Sat by Pulse Oximetry [ Right Arm] 02/03/19 02/03/19 02/03/19 07:15 07:30 07:45 Pulse Rate 52 L 56 L 54 L Pulse Rate [ Right Arm] Respiratory 18 15 20 Rate Respiratory Rate [Right Arm ] Blood Pressure 135/72 129/65 143/70 Blood Pressure [Right Arm] O2 Sat by Pulse 100 100 100 Oximetry O2 Sat by Pulse Oximetry [ Right Arm] 02/03/19 02/03/19 02/03/19 08:00 08:15 08:30 Pulse Rate 55 L 58 L 57 L Pulse Rate [ 55 L Right Arm] Respiratory 20 17 18 Rate Respiratory 21 Rate [Right Arm ] Blood Pressure 135/66 139/77 154/79 Blood Pressure 135/66 [Right Arm] O2 Sat by Pulse 100 100 100 Oximetry O2 Sat by Pulse 100 Oximetry [ Right Arm] 02/03/19 02/03/19 02/03/19 08:45 09:00 09:01 Pulse Rate 56 L 53 L Pulse Rate [ 53 L Right Arm] Respiratory 13 16 Rate Respiratory 16 Rate [Right Arm ] Blood Pressure 145/69 164/74 Blood Pressure 164/74 [Right Arm] O2 Sat by Pulse 100 100 Oximetry O2 Sat by Pulse 100 Oximetry [ Right Arm] 02/03/19 02/03/19 02/03/19 09:15 09:31 09:45 Pulse Rate 53 L 60 63 Pulse Rate [ Right Arm] Respiratory 14 12 22 Rate Respiratory Rate [Right Arm ] Blood Pressure 145/69 123/66 134/65 Blood Pressure [Right Arm] O2 Sat by Pulse 100 100 100 Oximetry O2 Sat by Pulse Oximetry [ Right Arm] 02/03/19 02/03/19 02/03/19 10:00 10:15 10:31 Pulse Rate 64 64 65 Pulse Rate [ 64 Right Arm] Respiratory 23 22 13 Rate Respiratory 23 Rate [Right Arm ] Blood Pressure 130/66 135/63 140/65 Blood Pressure 130/66 [Right Arm] O2 Sat by Pulse 100 100 100 Oximetry O2 Sat by Pulse 100 Oximetry [ Right Arm] 02/03/19 02/03/19 02/03/19 10:45 11:00 11:15 Pulse Rate 64 58 L 56 L Pulse Rate [ 58 L Right Arm] Respiratory 18 25 H 21 Rate Respiratory 25 H Rate [Right Arm ] Blood Pressure 140/65 144/67 137/68 Blood Pressure 144/67 [Right Arm] O2 Sat by Pulse 100 100 100 Oximetry O2 Sat by Pulse 100 Oximetry [ Right Arm] 02/03/19 02/03/19 02/03/19 11:26 11:27 11:30 Pulse Rate 61 61 52 L Pulse Rate [ Right Arm] Respiratory 27 H Rate Respiratory Rate [Right Arm ] Blood Pressure 137/68 137/68 137/68 Blood Pressure [Right Arm] O2 Sat by Pulse 100 Oximetry O2 Sat by Pulse Oximetry [ Right Arm] 02/03/19 02/03/19 02/03/19 11:45 12:00 12:15 Pulse Rate 57 L 55 L 70 Pulse Rate [ 55 L Right Arm] Respiratory 25 H 24 14 Rate Respiratory 24 Rate [Right Arm ] Blood Pressure 136/73 145/72 143/96 Blood Pressure 145/72 [Right Arm] O2 Sat by Pulse 100 100 100 Oximetry O2 Sat by Pulse 100 Oximetry [ Right Arm] CBC and BMP: 02/03/19 04:50 02/03/19 04:50 ABG, PT/INR, D-dimer: PT/INR, D-dimer PT 13.3 Sec. (12.2-14.9) 02/02/19 15:25 INR 1.04 (0.87-1.13) 02/02/19 15:25 Abnormal lab findings: Abnormal Labs 02/02/19 02/02/1902/03/19 15:25 15:25 04:50 WBC 11.9 H [place] % (Auto) 7.5 H 10.0 H [place] # 0.9 H 1.0 H Seg Neutrophils % 71.1 H 72.4 H Seg Neutrophils # 8.5 H Sodium 135 L Carbon Dioxide 21 L POC Glucose Total Protein 8.3 H Albumin 3.6 L HDL Cholesterol 02/03/19 02/03/19 04:50 11:57 WBC [place] % (Auto) [place] # Seg Neutrophils % Seg Neutrophils # Sodium Carbon Dioxide POC Glucose 124 H Total Protein Albumin 3.1 L HDL Cholesterol 39 L
--- NOTE | 2019-02-03 14:23 | Consultation ---
History of Present Illness Consult date: 02/03/19 Reason for Consult: Possible stroke Chief complaint: Right sided weakness and numbness History of present illness: Patient is a 38-year-old woman with a history of hypertension, diabetes, history of migraines. She was in her usual state of health until yesterday while at work. She initially began to feel somewhat weak in bilateral lower extremities at approximately 9:30. She began to experience a headache shortly before this, described as pain in the left posterior neck radiating to the left occipital region, approximately 7 out of 10 severity, not associated with any phonophobia or photophobia. Around 1:30 PM when she did take a break, she began to develop right upper and lower extremity weakness and decreased sensation. Patient was then able to drive home, however then later came to the emergency room for evaluation. The patient was evaluated by telemetry neurology in the emergency room, and was found to be a candidate for TPA. Patient was given TPA in the emergency room. She now states that her right-sided weakness and decreased sensation has persisted since yesterday, and has had slight improvement. Past History Past Medical History: diabetes, hypertension, hyperlipidemia Past Surgical History: Other (right toe surgery) Social history: lives with family, smoking, full code. denies: alcohol abuse Family history: hypertension, stroke Medications and Allergies Allergies Allergy/AdvReac Type Severity Reaction Status Date / Time No Known Allergies Allergy Unverified 02/02/19 15:15 Home Medications Medication Instructions Recorded Confirmed Last Taken Type Carvedilol [Coreg] 25 mg PO BID 02/02/19 02/02/19 02/02/19 History Ferrous Sulfate [Feosol 325 MG tab] 325 mg PO DAILY 02/02/19 02/02/19 02/02/19 History Insulin Glargine,Hum.rec.anlog 20 unit SQ HS 02/02/19 02/02/19 02/01/19 History [Thuyaglselma Anders U-100] Lisinopril/Hydrochlorothiazide 1 tab PO QDAY 02/02/19 02/02/19 02/02/19 History [Zestoretic 20-25 mg] Active Meds: Active Medications Acetaminophen (Tylenol) 650 mg PO Q4H PRN PRN Reason: Pain, Mild (1-3) Aspirin (Aspirin) 325 mg PO QDAY [facility] Atorvastatin Calcium (Lipitor) 40 mg PO QHS [facility] Last Admin: 02/02/19 22:51 Dose: 40 mg Documented by: Carvedilol (Coreg) 25 mg PO BID [facility] Last Admin: 02/03/19 11:27 Dose: 25 mg Documented by: Enoxaparin Sodium (Lovenox) 40 mg SUB-Q QDAY@2200 [facility] Famotidine (Pepcid) 20 mg PO DAILY [facility] Ferrous Sulfate (Feosol) 325 mg PO DAILY [facility] Last Admin: 02/03/19 11:26 Dose: 325 mg Documented by: Hydrochlorothiazide (Hctz) 25 mg PO QDAY [facility] Last Admin: 02/03/19 11:28 Dose: 25 mg Documented by: Hydromorphone HCl (Dilaudid) 0.5 mg IV Q3H PRN PRN Reason: Pain , Severe (7-10) Insulin Glargine (Lantus) 20 units SUB-Q [facility] Insulin Human Lispro (Humalog) 0 unit SUB-Q [facility]; Protocol Last Admin: 02/03/19 08:54 Dose: Not Given Documented by: Lisinopril (Zestril) 20 mg PO QDAY [facility] Last Admin: 02/03/19 11:26 Dose: 20 mg Documented by: Nicotine (Habitrol) 21 mg TD QDAY [facility] Last Admin: 02/03/19 11:28 Dose: Not Given Documented by: Sodium Chloride (Sodium Chloride Flush Syringe 10 Ml) 10 ml IV BID [facility] Last Admin: 02/03/19 11:29 Dose: 10 ml Documented by: Sodium Chloride (Sodium Chloride Flush Syringe 10 Ml) 10 ml IV PRN PRN PRN Reason: LINE FLUSH Review of Systems All systems: negative Neurological: weakness, parathesias Physical Examination - Vital Signs Vital Signs: Vital Signs Pulse Resp BP Pulse Ox 89 18 149/98 98 02/02/19 15:17 02/02/19 15:17 02/02/19 15:17 02/02/19 15:17 - Constitutional General appearance: comfortable - EENT EENT: Present: ATNC, PERRL, mucous membranes moist, hearing intact, vision intact - Respiratory Respiratory: Present: lungs clear, normal breath sounds - Cardiovascular Cardiovascular: Present: regular rate, normal S1, normal S2 Extremities: Present: no peripheral edema bilatateraly, no clubbing, cyanosis - Gastrointestinal Gastrointestinal: Present: normoactive bowel sounds, soft, non-tender - Integumentary Integumentary: Present: normal - Neurologic Cranial nerve examination: PERRL, EOMI, VFF, V1/V2/V3 grossly intact, face symmetric, tongue midline, intact shoulder shrug Speech examination: intact Motor examination - right side: 4/5: biceps, triceps, wrist flexion, wrist extension, mill work, hip flexors, knee extensors, dorsiflexion, toe extension (EHL), plantarflexion Motor examination - left side: 5/5: biceps, triceps, wrist flexion, wrist extension, mill work, hip flexors, knee extensors, dorsiflexion, toe extension (EHL), plantarflexion Detailed sensory examination: other (decreased on left to LT) Reflexes: 2+: ankle, bicep, knee, tricep Cerebellar examination: other (b/l intact to FTN and HTS) - Musculoskeletal Musculoskeletal: Present: no fluid collection, no pain - Psychiatric Psychiatric: Present: mood/affect appropriate - Level of Consciousness 1a. Level of Consciousness: alert/keenly responsive - LOC Questions 1b. LOC Questions: answers both correctly - LOC Command 1c. LOC Commands: performs tasks correctly - Best Gaze 2. Best Gaze: normal - Visual 3. Visual: no visual loss - Facial Palsy 4. Facial Palsy: normal symmetrical movement - Motor Arm 5a. Motor Arm Left: no drift 5b. Motor Arm Right: drift - Motor Leg 6a. Motor Leg Left: no drift 6b. Motor Leg Right: drift - Limb Ataxia 7. Limb Ataxia: absent - Sensory 8. Sensory: mild/moderate sensory loss - Best Language 9. Best Language: no aphasia - Dysarthria 10. Dysarthria: normal - Extinction and Inattention 11. Extinction/Inattention: no abnormality - Scoring Total Score: 3 Stroke Severity: Minor Stroke Results - Laboratory Findings CBC and BMP: 02/03/19 04:50 02/03/19 04:50 Abnormal Lab Findings: Abnormal Labs 02/02/19 02/02/19 02/03/19 15:25 15:25 04:50 WBC 11.9 H [place] % (Auto) 7.5 H 10.0 H [place] # 0.9 H 1.0 H Seg Neutrophils % 71.1 H 72.4 H Seg Neutrophils # 8.5 H Sodium 135 L Carbon Dioxide 21 L POC Glucose Total Protein 8.3 H Albumin 3.6 L HDL Cholesterol 02/03/19 02/03/19 04:50 11:57 WBC [place] % (Auto) Hayes # Seg Neutrophils % Seg Neutrophils # Sodium Carbon Dioxide POC Glucose 124 H Total Protein Albumin 3.1 L HDL Cholesterol 39 L Assessment and Plan Patient is a 38-year-old woman with a history of hypertension, diabetes, history of migraines, presented with right upper and lower extremity weakness and numbness. According the patient's clinical findings, is possible that the patient has had an acute ischemic stroke. Plan: 1. Possible Stroke: - MRI brain pending - MRA head/neck pending - CT brain did not reveal any acute abnormality. Patient received tPA, and is being monitored in ICU for 24 hours after TPA administration. LDL 96. Goal LDL less than 70, continue atorvastatin 40 mg daily. Hemoglobin A1c 5.2. Necklineechocardiogram pending. Patient to be started on aspirin 24 hours after TPA administration. Telemetry monitoring while in house. PT/OT/ST area DVT prophylaxis: Recommend Lovenox 24 hours after TPA administration. - Counseled patient regarding smoking cessation, and she stated that she will try to stop smoking now. 2.Hypertension: - Recommend blood pressure goal of less than 220/120 424-48 hours after symptom onset to allow for permissive hypertension. End target normotension after that. -Will continue to follow patient -Thank you for allowing me in the care of this patient. Jason Crawford MD Neurology
--- NOTE | 2019-02-03 15:36 | Consultation ---
History of Present Illness Consult date: 02/03/19 Requesting physician: NEELA ZUNIGA Reason for consult: other (Acute CVA s/p TPA) History of present illness: PULMONARY/CCM CONSULT NOTE (Full dictation # ) Please see dictated notes for full details Past History Past Medical History: diabetes, hypertension, hyperlipidemia Past Surgical History: Other (right toe surgery) Social history: lives with family, smoking, full code. denies: alcohol abuse Family history: hypertension, stroke Medications and Allergies Allergies Allergy/AdvReac Type Severity Reaction Status Date / Time No Known Allergies Allergy Unverified 02/02/19 15:15 Home Medications Medication Instructions Recorded Confirmed Last Taken Type Carvedilol [Coreg] 25 mg PO BID 02/02/19 02/02/19 02/02/19 History Ferrous Sulfate [Feosol 325 MG tab] 325 mg PO DAILY 02/02/19 02/02/19 02/02/19 History Insulin Glargine,Hum.rec.anlog 20 unit SQ HS 02/02/19 02/02/19 02/01/19 History [Thuyaglar Nicolepen U-100] Lisinopril/Hydrochlorothiazide 1 tab PO QDAY 02/02/19 02/02/19 02/02/19 History [Zestoretic 20-25 mg] Active Meds: Active Medications Acetaminophen (Tylenol) 650 mg PO Q4H PRN PRN Reason: Pain, Mild (1-3) Aspirin (Aspirin) 325 mg PO QDAY [facility] Atorvastatin Calcium (Lipitor) 40 mg PO QHS [facility] Last Admin: 02/02/19 22:51 Dose: 40 mg Documented by: Carvedilol (Coreg) 25 mg PO BID [facility] Last Admin: 02/03/19 11:27 Dose: 25 mg Documented by: Enoxaparin Sodium (Lovenox) 40 mg SUB-Q QDAY@2200 [facility] Famotidine (Pepcid) 20 mg PO DAILY [facility] Ferrous Sulfate (Feosol) 325 mg PO DAILY [facility] Last Admin: 02/03/19 11:26 Dose: 325 mg Documented by: Hydrochlorothiazide (Hctz) 25 mg PO QDAY [facility] Last Admin: 02/03/19 11:28 Dose: 25 mg Documented by: Hydromorphone HCl (Dilaudid) 0.5 mg IV Q3H PRN PRN Reason: Pain , Severe (7-10) Insulin Glargine (Lantus) 20 units SUB-Q HS [facility] Insulin Human Lispro (Humalog) 0 unit SUB-Q ACHS [facility]; Protocol Last Admin: 02/03/19 08:54 Dose: Not Given Documented by: Lisinopril (Zestril) 20 mg PO QDAY [facility] Last Admin: 02/03/19 11:26 Dose: 20 mg Documented by: Nicotine (Habitrol) 21 mg TD QDAY [facility] Last Admin: 02/03/19 11:28 Dose: Not Given Documented by: Sodium Chloride (Sodium Chloride Flush Syringe 10 Ml) 10 ml IV BID [facility] Last Admin: 02/03/19 11:29 Dose: 10 ml Documented by: Sodium Chloride (Sodium Chloride Flush Syringe 10 Ml) 10 ml IV PRN PRN PRN Reason: LINE FLUSH Physical Examination Vital signs: Vital Signs Pulse Resp BP Pulse Ox 89 18 149/98 98 02/02/19 15:17 02/02/19 15:17 02/02/19 15:17 02/02/19 15:17 Results - Laboratory Findings CBC and BMP: 02/03/19 04:50 02/03/19 04:50 PT/INR, D-dimer PT 13.3 Sec. (12.2-14.9) 02/02/19 15:25 INR 1.04 (0.87-1.13) 02/02/19 15:25 Abnormal lab findings: Abnormal Labs 02/02/19 02/02/19 02/03/19 15:25 15:25 04:50 WBC 11.9 H [place] % (Auto) 7.5 H 10.0 H [place] # 0.9 H 1.0 H Seg Neutrophils % 71.1 H 72.4 H Seg Neutrophils # 8.5 H Sodium 135 L Carbon Dioxide 21 L POC Glucose Total Protein 8.3 H Albumin 3.6 L HDL Cholesterol 02/03/19 02/03/19 04:50 11:57 WBC [place] % (Auto) [place] # Seg Neutrophils % Seg Neutrophils # Sodium Carbon Dioxide POC Glucose 124 H Total Protein Albumin 3.1 L HDL Cholesterol 39 L
[2019-02-03] MEDS: PEPCID PO SCH (16:41)
[2019-02-03] MEDS: TYLENOL PO PRN (16:45)
[2019-02-03] MEDS: ASPIRIN PO SCH (22:57)
[2019-02-03] MEDS: LOVENOX SUB-Q SCH (22:57)
[2019-02-03] MEDS: LANTUS SUB-Q SCH (22:58)
[2019-02-04] MEDS: HumaLOG SUB-Q SCH ×4 (08:00→22:00)
[2019-02-04] MEDS: ASPIRIN PO SCH (11:01)
[2019-02-04] MEDS: PEPCID PO SCH (11:02)
[2019-02-04] MEDS: COREG PO SCH ×2 (11:02→21:52)
[2019-02-04] MEDS: HCTZ PO SCH (11:02)
[2019-02-04] MEDS: FEOSOL PO SCH (11:03)
[2019-02-04] MEDS: HABITROL TD SCH (11:03)
[2019-02-04] MEDS: SODIUM CHLORIDE FLUSH SYRINGE 10 ML IV SCH ×2 (11:07→21:53)
[2019-02-04] MEDS: ZESTRIL PO SCH (11:21)
--- NOTE | 2019-02-04 11:25 | Magnetic Resonance Report ---
MRI BRAIN WITHOUT CONTRAST INDICATION / CLINICAL INFORMATION: Right-sided weakness and slurred speech. TECHNIQUE: Multiplanar, multisequence MR images of the brain were obtained. COMPARISON: Head CT on 02/02/2019. FINDINGS: BRAIN / INTRACRANIAL CONTENTS: There is a small acute infarct in the left paracentral oziel without as sociated hemorrhage or adverse mass effect. There is no other acute infarct. There is no acute hemorr abi, hydrocephalus, or evidence of mass lesion. There is stable appearance of thinning of the base o f the gyri in the medial right occipital lobe with sulcal prominence, suggesting developmental ulegyr ia. CRANIOCERVICAL JUNCTION: No significant abnormality. ORBITS: No significant abnormality of visualized orbits. SINUSES / MASTOIDS: No significant abnormality of visualized sinuses and mastoid air cells. ADDITIONAL FINDINGS: None. IMPRESSION: 1. Small acute infarct in the left paracentral oziel without associated hemorrhage or adverse mass eff ect. 2. No other acute intracranial abnormality. 3. 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 Signer Name: Roman Walker MD Signed: 02/04/2019 11:20 AM Workstation Name: [id number]
--- NOTE | 2019-02-04 11:27 | Magnetic Resonance Report ---
MR MRA/MRV head wo con INDICATION: STROKE. Right-sided weakness. TECHNIQUE: 3-D [id number] MRA head without contrast with multiplanar reformats. COMPARISON: None available. FINDINGS: There is no large vessel occlusion throughout the intracranial arteries. There is mild diffuse relati vely diminished flow throughout the right posterior cerebral artery. Remaining intracranial arteries demonstrate no significant stenosis. No intracranial aneurysms are identified. IMPRESSION: 1. No large vessel occlusion in the intracranial arteries. 2. Relatively diminished flow throughout the right posterior cerebral artery, which may be due to int racranial atherosclerosis or just developmental slow flow/asymmetric vascular size. Signer Name: Roman Walker MD Signed: 02/04/2019 11:23 AM Workstation Name: [id number]
--- NOTE | 2019-02-04 12:22 | Magnetic Resonance Report ---
MRA neck without contrast CLINICAL HISTORY: Right-sided weakness, slurred speech. FINDINGS: No previous exams available for comparison. 3-D [id number] MRA of the head was performe d. There is no significant stenosis involving the visualized carotid arteries by NASCET criteria. The vertebral arteries also demonstrate appropriate caliber without focal narrowing. IMPRESSION: There is no MRA evidence of significant stenosis involving the visualized carotid or vertebral arteri es by NASCET criteria. Signer Name: Sukhdev Callahan MD Signed: 02/04/2019 12:18 PM Workstation Name: [id number]
--- NOTE | 2019-02-04 14:02 | Progress Note ---
Assessment and Plan Assessment and plan: 38-year-old woman who presented with multiple neurological complaints. She stated that he started out with a headache and left-sided neck pain that radiated to the left side of her head. She then developed weakness in both her legs and had to hold onto something, she then noted that she had slurred speech, and numbness on her left side. She was admitted to the hospital and given TPA for suspected stroke. --Acute left CVA; status post TPA s/pTPA protocol, Neuro workup is in progress Aspirin and statin, neurology following --Right-sided weakness;PT ,OT Rehabilitation. Possible home health at discharge Workup done so far; Echo; normal bubble study no intracardiac or intrapulmonary shunt EF 55-60%, abnormal diastolic filling CT head without contrast; no acute abnormality MRI brain; small acute infarct in the left paracentral oziel without associated hemorrhage or mass effect, small area of developmental ulegyria endometrial right occipital lobe MRA neck; fairly moderate evidence of significant stenosis involving carotid or vertebral arteries MRA head; no large vessel occlusion in the intracranial arteries Diminished flow through right posterior cerebral artery due to intracranial atherosclerosis, or developmental abnormality CT abdomen and pelvis;[taken for abdominal pain post [TPA] No Acute abnormality --Hypertension; maintain blood pressures post stroke protocol Permissive hypertension, when necessary hydralazine --2diabetes; Accu-Chek sliding scale coverage and ADA diet Insulin as needed .A1c 5.2. Patient was on insulin at home Closely monitor blood sugars and adjust as needed --Hyperlipidemia; statin Low-cholesterol diet --Mild malnutrition: Nutrition supplements Supportive care --DVT prophylaxis; Lovenox Monitor closely and adjust management as needed Consults and recommendations noted and appreciated Plan of care is reviewed for the patient, her sister at the bedside Patient's nurse and case management History Interval history: Patient seen and examined medical records reviewed Admitted with acute CVA status post TPA Neurology evaluated the patient, neuro workup is in progress The patient feels slightly better, slow speech Receiving physical therapy Vital signs noted Hospitalist Physical - Constitutional Vitals: Temp Pulse Resp BP Pulse Ox 99.2 F 50 L 16 135/61 98 02/04/19 03:35 02/04/19 11:21 02/04/19 03:35 02/04/19 03:35 02/04/19 10:00 General appearance: Present: no acute distress, well-nourished - EENT Eyes: Present: PERRL, EOM intact - Neck Neck: Present: supple, normal ROM - Respiratory Respiratory effort: normal Respiratory: bilateral: diminished, negative: rales, rhonchi, wheezing - Cardiovascular Rhythm: regular Heart Sounds: Present: S1 & S2 - Extremities Extremities: no ischemia, No edema - Abdominal General gastrointestinal: soft, non-tender, non-distended, normal bowel sounds - Integumentary Integumentary: Present: clear, warm - Psychiatric Psychiatric: appropriate mood/affect, cooperative - Neurologic Neurologic: moves all extremities, other (her right-sided weakness) Results - Labs CBC & Chem 7: 02/03/19 04:50 02/03/19 04:50 Labs: Laboratory Last Values WBC 10.4 K/mm3 (4.5-11.0) 02/03/19 04:50 RBC 3.99 M/mm3 (3.65-5.03) 02/03/19 04:50 Hgb 11.8 gm/dl (10.1-14.3) 02/03/19 04:50 Hct 35.7 % (30.3-42.9) 02/03/19 04:50 MCV 90 fl (79-97) 02/03/19 04:50 MCH 30 pg (28-32) 02/03/19 04:50 MCHC 33 % (30-34) 02/03/19 04:50 RDW 13.8 % (13.2-15.2) 02/03/19 04:50 Plt Count 357 K/mm3 (140-440) 02/03/19 04:50 Lymph % (Auto) 14.2 % (13.4-35.0) 02/03/19 04:50 [place] % (Auto) 10.0 % (0.0-7.3) H 02/03/19 04:50 Eos % (Auto) 3.0 % (0.0-4.3) 02/03/19 04:50 Baso % (Auto) 0.4 % (0.0-1.8) 02/03/19 04:50 Lymph # 1.5 K/mm3 (1.2-5.4) 02/03/19 04:50 [place] # 1.0 K/mm3 (0.0-0.8) H 02/03/19 04:50 Eos # 0.3 K/mm3 (0.0-0.4) 02/03/19 04:50 Baso # 0.0 K/mm3 (0.0-0.1) 02/03/19 04:50 Seg Neutrophils % 72.4 % (40.0-70.0) H 02/03/19 04:50 Seg Neutrophils # 7.5 K/mm3 (1.8-7.7) 02/03/19 04:50 PT 13.3 Sec. (12.2-14.9) 02/02/19 15:25 INR 1.04 (0.87-1.13) 02/02/19 15:25 APTT 30.9 Sec. (24.2-36.6) 02/02/19 15:25 15.9 Sec. (15.1-19.6) 02/02/19 15:25 Sodium 138 mmol/L (137-145) 02/03/19 04:50 Potassium 4.0 mmol/L (3.6-5.0) 02/03/19 04:50 Chloride 105.9 mmol/L (98-107) 02/03/19 04:50 Carbon Dioxide 23 mmol/L (22-30) 02/03/19 04:50 13 mmol/L 02/03/19 04:50 BUN 15 mg/dL (7-17) 02/03/19 04:50 0.8 mg/dL (0.7-1.2) 02/03/19 04:50 Estimated GFR > 60 ml/min 02/03/19 04:50 19 % 02/03/19 04:50 Glucose 98 mg/dL (65-100) 02/03/19 04:50 POC Glucose 184 (70-105) H 02/04/19 11:14 5.2 % (4-6) 02/03/19 04:50 Calcium 8.5 mg/dL (8.4-10.2) 02/03/19 04:50 Magnesium 1.90 mg/dL (1.7-2.3) 02/02/19 19:30 0.20 mg/dL (0.1-1.2) 02/03/19 04:50 AST 14 units/L (5-40) 02/03/19 04:50 ALT 13 units/L (7-56) 02/03/19 04:50 105 units/L (35-129) 02/03/19 04:50 117 units/L (30-135) 02/02/19 15:25 CK-MB (CK-2) 1.2 ng/mL (0.0-4.0) 02/02/19 15:25 CK-MB (CK-2) Rel Index 1.0 (0-4) 02/02/19 15:25 < 0.010 ng/mL (0.00-0.029) 02/02/19 15:25 6.9 g/dL (6.3-8.2) 02/03/19 04:50 3.1 g/dL (3.9-5) L 02/03/19 04:50 0.8 % 02/03/19 04:50 Triglycerides 70 mg/dL (2-149) 02/03/19 04:50 Cholesterol 135 mg/dL (50-199) 02/03/19 04:50 96 mg/dL (50-130) 02/03/19 04:50 39 mg/dL (40-59) L 02/03/19 04:50 3.46 % 02/03/19 04:50 Active Medications - Current Medications Current Medications: Generic Name Dose Route Start Last Admin Trade Name Ashleigh PRN Reason Stop Dose Admin Acetaminophen 650 mg 02/03/19 08:07 02/03/19 16:45 Tylenol PO 650 mg Q4H PRN Administration Pain, Mild (1-3) Aspirin 325 mg 02/03/19 22:00 02/04/19 11:01 Aspirin PO 325 mg QDAY [facility] Administration Atorvastatin Calcium 40 mg 02/02/19 22:00 02/03/19 22:57 Lipitor PO 40 mg QHS [facility] Administration Carvedilol 25 mg 02/02/19 23:00 02/04/19 11:02 Coreg PO 25 mg BID [facility] Administration Enoxaparin Sodium 40 mg 02/03/19 22:00 02/03/19 22:57 Lovenox SUB-Q 40 mg QDAY@2200 [facility] Administration Famotidine 20 mg 02/03/19 15:00 02/04/19 11:02 Pepcid PO 20 mg DAILY [facility] Administration Ferrous Sulfate 325 mg 02/03/19 10:00 02/04/19 11:03 Feosol PO 325 mg DAILY [facility] Administration Hydrochlorothiazide 25 mg 02/03/19 10:00 02/04/19 11:02 Hctz PO 25 mg QDAY [facility] Administration Hydromorphone HCl 0.5 mg 02/02/19 19:21 Dilaudid IV Q3H PRN Pain , Severe (7-10) Insulin Glargine 20 units 02/03/19 22:00 02/03/19 22:58 Lantus SUB-Q 20 units HS [facility] Administration Insulin Human Lispro 0 unit 02/03/19 07:30 02/04/19 11:20 Humalog SUB-Q 2 unit ACHS [facility] Administration Protocol Lisinopril 20 mg 02/03/19 10:00 02/04/19 11:21 Zestril PO 20 mg QDAY [facility] Administration Nicotine 21 mg 02/03/19 00:00 02/04/19 11:03 Habitrol TD 21 mg QDAY [facility] Administration Sodium Chloride 10 ml 02/02/19 22:00 02/04/19 11:07 Sodium Chloride Flush Syringe 10 Ml IV 10 ml BID [facility] Administration Sodium Chloride 10 ml 02/02/19 19:20 Sodium Chloride Flush Syringe 10 Ml IV PRN PRN LINE FLUSH Nutrition/Malnutrition Assess - Dietary Evaluation Nutrition/Malnutrition Findings: Nutrition Notes Start: 02/03/19 11:59 Freq: Status: Active Protocol: Document 02/03/19 11:59 CARMINE (Rec: 02/03/19 12:01 CARMINE [email or web address]) Nutrition Notes Need for Assessment generated from: MD Order,Education Initial or Follow up Brief Note Current Diagnosis Diabetes,Hypertension, Hyperlipidemia Other Pertinent Diagnosis Acute CVA Labs/Tests A1C 5.2 Lipid panel WNL Subjective/Other Information RD consulted for diet education. Pt denies need for diet education; says she takes BP medications as prescribed and minimizes salt intake. Reports family hx of CVA and HTN. Reports good appetite. Nutrition Intervention Revisit per MD consult or patient Sign Off request:
--- NOTE | 2019-02-04 14:05 | Progress Note ---
Assessment and Plan Patient alert and awake. No complaint of chest pain, shortness of breath, cough. Patient has stroke. Recommend aspiration precautions. Patient obese and history of obstructive sleep apnea not using CPAP. Recommend sleep study as an outpat ient. O2 saturation 98% on room air. - Patient Problems (1) Sleep apnea Current Visit: Yes Status: Acute Plan to address problem: Recommend sleep study as outpatient. (2) Obesity (BMI 30.0-34.9) Current Visit: Yes Status: Acute Plan to address problem: Recommend to lose weight and diet and exercise. (3) CVA (cerebral vascular accident) Current Visit: Yes Status: Acute Plan to address problem: Management as per neurology. (4) Diabetes Current Visit: No Status: Chronic Qualifiers: Diabetes mellitus type: type 2 Plan to address problem: Management as per primary care. (5) Hypertension Current Visit: No Status: Chronic Qualifiers: Hypertension type: essential hypertension Qualified Code(s): I10 - Essential (primary) hypertension Plan to address problem: Management as per primary care. (6) Tobacco use Current Visit: Yes Status: Acute Plan to address problem: Counseled to stop smoking. Subjective Date of service: 02/04/19 Interval history: Patient alert and awake. No complaint of chest pain, shortness of breath, cough. Patient has stroke. Recommend aspiration precautions. Patient obese and history of obstructive sleep apnea not using CPAP. Recommend sleep study as an outpatient. O2 saturation 98% on room air. Objective Vital Signs - 12hr 02/04/19 02/04/19 02/04/19 03:35 09:06 10:00 Temperature 99.2 F Pulse Rate 53 L 51 L Respiratory 16 Rate Blood Pressure 135/61 O2 Sat by Pulse 100 98 Oximetry 02/04/19 02/04/19 11:02 11:21 Temperature Pulse Rate 57 L 50 L Respiratory Rate Blood Pressure O2 Sat by Pulse Oximetry Constitutional: no acute distress, alert Eyes: non-icteric ENT: oropharynx moist Neck: supple Effort: normal Ascultation: Bilateral: diminished breath sounds Cardiovascular: regular rate and rhythm Gastrointestinal: normoactive bowel sounds, soft, non-tender Integumentary: normal Extremities: no cyanosis, no edema Neurologic: normal mental status, pupils equal and round, other (R sided weakness) Psychiatric: mood appropriate CBC and BMP: 02/03/19 04:50 02/03/19 04:50 ABG, PT/INR, D-dimer: PT/INR, D-dimer PT 13.3 Sec. (12.2-14.9) 02/02/19 15:25 INR 1.04 (0.87-1.13) 02/02/19 15:25 Abnormal lab findings: Abnormal Labs 02/02/19 02/02/19 02/03/19 15:25 15:25 04:50 WBC 11.9 H [place] % (Auto) 7.5 H 10.0 H [place] # 0.9 H 1.0 H Seg Neutrophils % 71.1 H 72.4 H Seg Neutrophils # 8.5 H Sodium 135 L Carbon Dioxide 21 L POC Glucose Total Protein 8.3 H Albumin 3.6 L HDL Cholesterol 02/03/19 02/03/19 02/03/19 04:50 11:57 16:58 WBC [place] % (Auto) [place] # Seg Neutrophils % Seg Neutrophils # Sodium Carbon Dioxide POC Glucose 124 H 115 H Total Protein Albumin 3.1 L HDL Cholesterol 39 L 02/03/19 02/04/19 21:38 11:14 WBC [place] % (Auto) [place] # Seg Neutrophils % Seg Neutrophils # Sodium Carbon Dioxide POC Glucose 179 H 184 H Total Protein Albumin HDL Cholesterol
--- NOTE | 2019-02-04 14:41 | Vascular Lab Report ---
BILATERAL CAROTID DOPPLER ULTRASOUND INDICATION : stroke TECHNIQUE: Grayscale and color Doppler imaging performed through the neck. COMPARISON: None FINDINGS: Right: There is mild irregular partially calcified plaque in the carotid bulb. Peak systolic veloci ty in the CCA is 77 cm/s with end-diastolic velocity of 21 cm/s. Peak systolic velocity in the proxim al ICA is 80 cm/s with end-diastolic velocity of 33 cm/s. ICA to CCA ratio is less than 2. There is a ntegrade flow in the ECA and the vertebral artery. Left: There is no significant atherosclerotic disease. Peak systolic velocity in the CCA is 69 cm/s w ith end-diastolic velocity of 19 cm/s. Peak systolic velocity in the proximal ICA is 93 cm/s with end -diastolic velocity of 41 cm/s. ICA to CCA ratio is less than 2. There is antegrade flow in the ECA and the vertebral artery. IMPRESSION: No hemodynamically significant stenosis by NASCET criteria. Signer Name: Phill Everett Jr, MD Signed: 02/04/2019 2:37 PM Workstation Name: [id number]
--- NOTE | 2019-02-04 15:49 | Progress Note ---
Assessment and Plan Patient is a 38-year-old woman with a history of hypertension, diabetes, history of migraines, presented with right upper and lower extremity weakness and numbness. According the patient's clinical findings, the patient has had an acute ischemic stroke in the left pontine region. Plan: 1. Possible Stroke: - MRI revealed Lt. pontine stroke. - MRA head/neck unremarkable. - CT brain did not reveal any acute abnormality. Patient received tPA in ER. LDL 96. Goal LDL less than 70, continue atorvastatin 40 mg daily. Hemoglobin A1c 5.2. Echocardiogram: EF 55-60%, bubble study negative, LA normal size. Cont. ASA Telemetry monitoring while in house. PT/OT/ST DVT prophylaxis: Recommend Lovenox - Counseled patient regarding smoking cessation, and she stated that she will try to stop smoking now. - As etiology of stroke is cryptogenic at this point, recommend for patient to have long-term cardiac monitoring with either 30 day heart monitor as outpatient, or implantable loop recorder, which can also be placed as outpatie nt. - Recommend follow up with neurology as outpatient in 2-3 weeks after discharge. 2.Hypertension: - Recommend blood pressure goal of normotension. -Will sign off, as stroke workup is complete, and treatment plan is in place. Please call with any questions. -Thank you for allowing me in the care of this patient. Jason Crawford MD Neurology Subjective Date of service: 02/04/19 Principal diagnosis: Stroke Interval history: No acute events overnight. Patient walking with PT. Objective - Vital Sign Vital Signs - 12hr 02/04/19 02/04/19 02/04/19 09:06 10:00 11:02 Pulse Rate 51 L 57 L O2 Sat by Pulse 98 Oximetry 02/04/19 11:21 Pulse Rate 50 L O2 Sat by Pulse Oximetry - General Apperance Constitutional: comfortable - EENT EENT: ATNC, PERRL, mucous membranes moist, hearing intact, vision intact - Respiratory Respiratory: lungs clear, normal breath sounds - Cardiovascular Cardiovascular: regular rate, normal S1, normal S2 Extremities: no peripheral edema bilat, no clubbing, cyanosis - Gastrointestinal Gastrointestinal: normoactive bowel sounds, soft, non-tender - Integumentary Integumentary: normal - Neurologic Cranial nerve examination: PERRL, EOMI, VFF, V1/V2/V3 grossly intact, face symmetric, tongue midline Speech examination: intact Motor examination - right side: 45: biceps, triceps, wrist flexion, wrist extension, plant engineer, hip flexors, knee extensors, dorsiflexion, toe extension (EHL), plantarflexion Motor examination - left side: 55: biceps, triceps, wrist flexion, wrist extension, plant engineer, hip flexors, knee extensors, dorsiflexion, toe extension (EHL), plantarflexion Detailed sensory examination: other (decreased on Rt. to LT) Reflexes: 2+: ankle, bicep, knee, tricep Cerebellar examination: other (b/l intact to FTN and HTS) - Musculoskeletal Musculoskeletal: no fluid collection, no pain - Psychiatric Psychiatric: mood/affect appropriate - Laboratory Findings CBC and BMP: 02/03/19 04:50 02/03/19 04:50 Abnormal Lab Findings: Abnormal Labs 02/02/19 02/02/19 02/03/19 15:25 15:25 04:50 WBC 11.9 H [place] % (Auto) 7.5 H 10.0 H [place] # 0.9 H 1.0 H Seg Neutrophils % 71.1 H 72.4 H Seg Neutrophils # 8.5 H Sodium 135 L Carbon Dioxide 21 L POC Glucose Total Protein 8.3 H Albumin 3.6 L HDL Cholesterol 02/03/19 02/03/19 02/03/19 04:50 11:57 16:58 WBC [place] % (Auto) [place] # Seg Neutrophils % Seg Neutrophils # Sodium Carbon Dioxide POC Glucose 124 H 115 H Total Protein Albumin 3.1 L HDL Cholesterol 39 L 02/03/19 02/04/19 21:38 11:14 WBC [place] % (Auto) [place] # Seg Neutrophils % Seg Neutrophils # Sodium Carbon Dioxide POC Glucose 179 H 184 H Total Protein Albumin HDL Cholesterol
[2019-02-04] MEDS ORDERED: LOVENOX SUB-Q SCH (21:00)
[2019-02-04] MEDS: LOVENOX SUB-Q SCH (21:52)
[2019-02-04] MEDS: LANTUS SUB-Q SCH (21:53)
[2019-02-04] MEDS: TYLENOL PO PRN (23:46)
[2019-02-05] MEDS: HumaLOG SUB-Q SCH ×2 (08:29→12:52)
[2019-02-05 08:31] VITALS: BP 144/80
--- NOTE | 2019-02-05 09:16 | Progress Note ---
Assessment and Plan Patient alert and awake. No complaint of chest pain, shortness of breath, cough. Patient has stroke. Recommend aspiration precautions. Patient obese and history of obstructive sleep apnea not using CPAP. Recommend sleep study as an outpat ient. O2 saturation 98% on room air.Chest xray reported normal. If patient going to be discharged to day, recommend to come to my office as out patient to follow up on sleep apnea. - Patient Problems (1) Sleep apnea Status: Acute Plan to address problem: Recommend sleep study as outpatient. (2) Obesity (BMI 30.0-34.9) Status: Acute Plan to address problem: Recommend to lose weight . Diet and exercise. (3) CVA (cerebral vascular accident) Status: Acute Plan to address problem: Management as per neurology. (4) Diabetes Status: Chronic Qualifiers: Diabetes mellitus type: type 2 Plan to address problem: Management as per primary care. (5) Hypertension Status: Chronic Qualifiers: Hypertension type: essential hypertension Qualified Code(s): I10 - Essential (primary) hypertension Plan to address problem: Management as per primary care. (6) Tobacco use Status: Acute Plan to address problem: Counseled to stop smoking. Subjective Date of service: 02/05/19 Principal diagnosis: Stroke Interval history: Patient alert and awake. No complaint of chest pain, shortness of breath, cough. Patient has stroke. Recommend aspiration precautions. Patient obese and history of obstructive sleep apnea not using CPAP. Recommend sleep study as an outpatient. O2 saturation 98% on room air. Chest xray reported normal. If patient going to be discharged to day, recommend to come to my office as out patient to follow up on sleep apnea. Objective Vital Signs - 12hr 02/04/19 02/04/19 02/04/19 21:52 22:00 23:36 Temperature 98.4 F Pulse Rate 65 71 69 Respiratory 20 18 Rate Blood Pressure 143/66 151/75 O2 Sat by Pulse 98 100 Oximetry 02/05/19 02/05/19 02/05/19 04:22 07:24 08:27 Temperature 98.1 F 98.5 F Pulse Rate 71 63 Respiratory 18 18 20 Rate Blood Pressure 170/78 144/80 O2 Sat by Pulse 100 93 98 Oximetry Constitutional: no acute distress, alert Eyes: non-icteric ENT: oropharynx moist Neck: supple Effort: normal Ascultation: Bilateral: diminished breath sounds Cardiovascular: regular rate and rhythm Gastrointestinal: normoactive bowel sounds, soft, non-tender Integumentary: normal Extremities: no cyanosis, no edema Neurologic: normal mental status, pupils equal and round, other (R sided weakness) Psychiatric: mood appropriate CBC and BMP: 02/03/19 04:50 02/03/19 04:50 ABG, PT/INR, D-dimer: PT/INR, D-dimer PT 13.3 Sec. (12.2-14.9) 02/02/19 15:25 INR 1.04 (0.87-1.13) 02/02/19 15:25 Abnormal lab findings: Abnormal Labs 02/02/19 02/02/19 02/03/19 15:25 15:25 04:50 WBC 11.9 H [place] % (Auto) 7.5 H 10.0 H [place] # 0.9 H 1.0 H Seg Neutrophils % 71.1 H 72.4 H Seg Neutrophils # 8.5 H Sodium 135 L Carbon Dioxide 21 L POC Glucose Total Protein 8.3 H Albumin 3.6 L HDL Cholesterol 02/03/19 02/03/19 02/03/19 04:50 11:57 16:58 WBC [place] % (Auto) [place] # Seg Neutrophils % Seg Neutrophils # Sodium Carbon Dioxide POC Glucose 124 H 115 H Total Protein Albumin 3.1 L HDL Cholesterol 39 L 02/03/19 02/04/19 02/04/19 21:38 11:14 16:51 WBC [place] % (Auto) [place] # Seg Neutrophils % Seg Neutrophils # Sodium Carbon Dioxide POC Glucose 179 H 184 H 148 H Total Protein Albumin HDL Cholesterol 02/04/19 20:09 WBC [place] % (Auto) [place] # Seg Neutrophils % Seg Neutrophils # Sodium Carbon Dioxide POC Glucose 130 H Total Protein Albumin HDL Cholesterol Chest x-ray: report reviewed (Reported normal chest xray.), image reviewed
--- NOTE | 2019-02-05 09:49 | XRay Report ---
CHEST 2 VIEWS INDICATION: smoker. COMPARISON: None FINDINGS: Support devices: None. Heart: Within normal limits. Lungs/pleura: No acute air space or interstitial disease. No pneumothorax. Additional findings: None. IMPRESSION: Normal chest x-ray. Signer Name: Phill Everett Jr, MD Signed: 02/05/2019 9:44 AM Workstation Name: [id number]
[2019-02-05] MEDS: ZESTRIL PO SCH (10:16)
[2019-02-05] MEDS: PEPCID PO SCH (10:16)
[2019-02-05] MEDS: HCTZ PO SCH (10:16)
[2019-02-05] MEDS: FEOSOL PO SCH (10:17)
[2019-02-05] MEDS: ASPIRIN PO SCH (10:17)
[2019-02-05] MEDS: COREG PO SCH (10:17)
[2019-02-05] MEDS: HABITROL TD SCH (10:17)
[2019-02-05] MEDS: SODIUM CHLORIDE FLUSH SYRINGE 10 ML IV SCH (10:18)
--- NOTE | 2019-02-05 13:14 | Discharge Summary ---
Providers - Providers Date of Admission: 02/02/19 19:20 Date of discharge: 02/05/19 Attending physician: ARLEEN DURAN 02/02/19 Consult to Physician [CONS] Routine Comment: Consulting Provider: LILIA HANSON Physician Instructions: Reason For Exam: cva-s/p tpa 02/02/19 19:20 Consult to Dietitian/Nutrition [CONS] Routine Physician Instructions: Reason For Exam: Reason for Consult: Diet education Occupational Therapy Evaluate and Treat [CONS] Routine Comment: Reason For Exam: Neuro deficits Physical Therapy Evaluation and Treat [CONS] Routine Comment: Reason For Exam: Neuro deficits 02/02/19 19:22 Consult to Physician [CONS] Routine Comment: Consulting Provider: SHERIDAN BOWEN Physician Instructions: Reason For Exam: Acute CVA-s/p Tpa 02/02/19 21:38 Speech Therapy Evaluation and Treat [CONS] Routine Reason For Exam: Dysarthria [facility] Condition: Serious Disposition: DC-01 TO HOME OR SELFCARE Time spent for discharge: 32 min Core Measure Documentation - Palliative Care Palliative Care/ Comfort Measures: Not Applicable - Core Measures Any of the following diagnoses?: stroke - Stroke Discharge Requirements Statin for LDL = or >70 mg/dl on DC: Yes Anticoag for atrial fib/atrial flutter: Not Applicable (no afib/flutter) Antithrombotic for ischemic stroke: Yes Exam - Constitutional Vitals: Temp Pulse Resp BP Pulse Ox 98.5 F 63 20 144/80 98 02/05/19 07:24 02/05/19 10:17 02/05/19 08:27 02/05/19 10:17 02/05/19 08:27 Plan Activity: advance as tolerated, fall precautions Diet: other (cardiac diet) Special Instructions: physical therapy Additional Instructions: Fall precautions. Outpatient physical therapy. 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 Follow private neurologist as scheduled. Advised 5 days work excuse starting from 02/06/2019 till 02/10/19. 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
== END 2019-02-05 16:28 | disposition home or self-care (01) | DRG 62 ==
LOC: ED 15:11 → CC1 19:20 → 4A 02-03 19:03
PROVIDERS: ADMIT Internal Medicine; ATTEND Internal Medicine
DX: I63.9 Cerebral infarction, unspecified (principal); E44.1 Mild protein-calorie malnutrition; I50.42 Chronic combined systolic (congestive) and diastolic (congestive) heart failure; G81.91 Hemiplegia, unspecified affecting right dominant side; E78.2 Mixed hyperlipidemia; I95.0 Idiopathic hypotension; G40.909 Epilepsy, unspecified, not intractable, without status epilepticus; I11.0 Hypertensive heart disease with heart failure; R47.81 Slurred speech; G47.30 Sleep apnea, unspecified; R29.704 NIHSS score 4; F17.210 Nicotine dependence, cigarettes, uncomplicated; E11.9 Type 2 diabetes mellitus without complications; Z71.6 Tobacco abuse counseling; Z82.3 Family history of stroke; Z82.49 Family history of ischemic heart disease and other diseases of the circulatory system; Z79.899 Other long term (current) drug therapy; Z79.4 Long term (current) use of insulin; Z68.32 Body mass index [BMI] 32.0-32.9, adult
CPT/HCPCS: 36415; 70450; 70544; 70547; 70551; 71046; 74176; 80053; 80061; 82550; 82553; 82962; 83036; 83735; 84484; 85025; 85610; 85670; 85730; 93005; 93010; 93306; 93880; 99406; G0378; A9270-GY; J1650; J1815; J2997; J7030